=== PATIENT | female | born 1950 | race Caucasian/White ===

== ENCOUNTER 2017-06-26 20:22 | Inpatient (IN) | payer OTHER, MEDICARE ==
[~2017-06-26] VITALS: Ht 160 cm; Wt 111.1 kg
[~2017-06-26 20:22] MED LIST: ACETAMINOPHEN PO; AMITIZA8 MCG PO; ARMOUR THYROID60 MG PO; BISOPROLOL/HCTZ1 TAB PO; BUTALBITAL PO; CAFFEINE PO; CRESTOR 10MG10 MG PO; DIAZEPAM10 MG PO; FIORICET 325 MG1 TAB PO; K-DUR 20MEQ TA20 MEQ PO; LEVAQUIN750 M1 PO; MIRALAX17 GM PO; NEXIUM 40MG40 MG PO; NORCO 325 MG-101 TAB PO; PROVENTIL HFA6.7 GM INH
--- NOTE | 2017-06-26 20:43 | ED GENERAL ADULT ---
History of Present Illness General Chief Complaint: Dyspnea (COPD, CHF, Other) Stated Complaint: "PNEUMONIA" Source: patient, old records Exam Limitations: no limitations Vital Signs & Intake/Output Vital Signs & Intake/Output Vital Signs Date Time Temp Pulse Resp B/P B/P Pulse O2 O2 Flow FiO2 Mean Ox Delivery Rate 06/27 0220 98.6 98 20 154/86 93 Room Air 06/27 0211 Room Air 06/27 0043 99.2 06/26 2309 98.2 79 22 152/93 94 Room Air 06/26 2117 118 16 176/84 93 Room Air 06/26 2105 99.7 98 18 175/100 92 Room Air ED Intake and Output 06/27 0000 06/26 1200 Intake Total 240 Output Total Balance 240 Intake, Oral 240 Patient 245 lb Weight Weight Reported by Patient Measurement Method Allergies Coded Allergies: atorvastatin (RHABDOMYOLYSIS 06/26/17) codeine (GI DISTRESS 06/26/17) Reconcile Medications Albuterol Sulfate (Proventil Hfa) 90 MCG HFA.AER.AD 2 PUF INH Q4 PRN wheezing Aspirin/Acetaminophen/Caffeine (Excedrin Extra Strength Caplet) 250 MG-250 MG-65 MG TABLET 2 TAB PO QAM PAIN (Reported) Bisoprolol Fumarate/Hctz (Bisoprolol-Hctz 10-6.25 MG Tab) (Unknown Strength) TABLET (Unknown Dose) PO DAILY BP (Reported) Diazepam 10 MG TABLET 1 TAB PO 4XDAILY PRN ANXIETY (Reported) Esomeprazole Magnesium (Nexium) 20 MG CAPSULE.DR 2 CAP PO DAILY GI (Reported) Hydrocodone/Acetaminophen (Hydrocodon-Acetaminophn 10-325) 10 MG-325 MG TABLET 1 TAB PO Q8H PRN PAIN (Reported) Levofloxacin (Levaquin) 750 MG TABLET 1 TAB PO DAILY PNA Potassium Chloride (Unknown Strength) TAB.ER.PRT (Unknown Dose) PO DAILY SUPPLEMENT (Reported) Ranitidine HCl (Zantac) 150 MG TABLET 1 TAB PO QPM GI (Reported) Rosuvastatin Calcium (Crestor) (Unknown Strength) TABLET (Unknown Dose) PO DAILY CHOLESTEROL (Reported) Thyroid,Pork (Climax Thyroid) 60 MG TABLET 1 TAB PO DAILY THYROID (Reported) Triage Note: RECEIVED 66 YO FEMALE INSTRUCTED TO RETURN TO THE ED BY CARLOS EDMONDS FOR EKG CHANGES AND PNA Triage Nurses Notes Reviewed? yes Onset: Gradual Duration: day(s): Timing: recent history Injury Environment: home Severity: moderate HPI: 66yo female with hx of HTN presents to ED complaining of cough, congestion and dyspnea x weeks. Patient reports that symptoms have worsened over the past several days. Dyspnea is worse with ambulation with lying flat. Patient reports intermittent fevers and chills over the past 2 days. Patient reports bilateral chest pain with cough for the past 2 days. Patient has been taking Mucinex and NyQuil which have helped her symptoms slightly have her symptoms have been persistent. Patient was also prescribed azithromycin and finished 2 courses however symptoms have been persistent. Today patient was seen and evaluated at an urgent care and was sent here to the emergency department for evaluation of possible pneumonia. The patient denies presyncope, vomiting, diarrhea, constipation, hemoptysis, recent travel, leg swelling (Carlos Ellis) Past History Travel History Traveled to [place] past 21 day No Medical History Any Pertinent Medical History? 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 No (Carlos Ellis) Review of Systems Review of Systems Constitutional: Reports: see HPI. EENTM: Reports: see HPI. Respiratory: Reports: see HPI. Cardiovascular: Reports: see HPI. GI: Reports: no symptoms. Genitourinary: Reports: no symptoms. Musculoskeletal: Reports: no symptoms. Skin: Reports: no symptoms. Neurological/Psychological: Reports: no symptoms. Hematologic/Endocrine: Reports: no symptoms. Immunologic/Allergic: Reports: no symptoms. All Other Systems: Reviewed and Negative (Carlos Ellis) Physical Exam Physical Exam General Appearance: well developed/nourished, no apparent distress, alert, awake Head: atraumatic, normal appearance Eyes: Bilateral: normal appearance. Ears, Nose, Throat: normal pharynx, normal ENT inspection, hearing grossly normal Neck: normal inspection, supple, full range of motion Respiratory: diffuse expiratory wheezes bilaterally Cardiovascular: tachycardia, irregularly irregular Peripheral Pulses: 2+ radial (R), 2+ radial (L) Gastrointestinal: normal bowel sounds, soft, non-tender, no organomegaly Rectal: normal exam, normal rectal tone, heme negative stool Back: normal inspection, normal range of motion Extremities: normal inspection, normal range of motion Neurologic/Psych: awake, alert, oriented x 3 Skin: intact, normal color, warm/dry Core Measures ACS in differential dx? Yes CVA/TIA Diagnosis: No Sepsis Present: No Sepsis Focused Exam Completed? No (Mady EDMONDS,Carlos Soni) Progress Differential Diagnoses I considered the following diagnoses in my evaluation of the patient: [Pneumonia , new onset atrial fibrillation, pulmonary embolism, ACS, bronchitis] Plan of Care: Orders Procedure Date/time Status Heart Healthy Diet 06/27 B Active CBC WITHOUT DIFFERENTIAL 06/27 0600 Active BASIC ELECTROLYTES PLUS BUN&CR 06/27 0600 Active TROPONIN LEVEL 06/27 0400 Active EKG 06/27 0400 Active Vital Signs 06/27 0116 Active Teach/Educate 06/27 0116 Active Pain Treatment and Response 06/27 0116 Active Nutritional Intake, Monitor 06/27 0116 Active Isolation 06/27 0116 Active Intake & Output 06/27 0116 Active Patient Care Conference 06/27 0116 Active Activity/Ambulation 06/27 0116 Active MISTAKE 06/27 UNK Active TRC EVALUATION (GEN) 06/26 2324 Active Pathway - chart 06/26 2323 Active House Staff 06/26 2323 Active Patient Data 06/26 2323 Active Code Status 06/26 2323 Active Patient Data 06/26 2322 Active Patient Data 06/26 2320 Active Intake & Output 06/26 2231 Active ED Holding Orders 06/26 2226 Active Admit to inpatient 06/26 2226 Active Vital Signs 06/26 2226 Active Code Status 06/26 2226 Complete BLOOD CULTURE 06/26 2131 Active TROPONIN LEVEL 06/26 2124 Complete PARTIAL THROMBOPLASTIN TIME 06/26 2124 Complete PROTHROMBIN TIME 06/26 2124 Complete D-DIMER 06/26 2124 Complete VTE Mechanical Prophylaxis 06/26 UNK Active Telemetry/Health Services Rn 06/26 UNK Active Current Medications Sig/Christopher Start time Last Medication Dose Stop Time Status Admin Azithromycin 500 MG DAILY 06/27 1000 AC 06/26 (Zithromax) 2340 Dextrose/Water 250 ML (D5W) Ceftriaxone Sodium 1,000 MG DAILY 06/27 1000 AC 06/27 (Rocephin) 0003 Diltiazem HCl 125 MG Q24H 06/26 2315 AC 06/27 (Cardizem DRIP) 0026 Sodium Chloride 100 ML (Normal Saline 0.9%) Heparin Sodium 25,000 UNIT Q24H 06/26 2300 AC 06/27 (Porcine) 0026 (Heparin) Sodium Chloride 500 ML Laboratory Tests 06/26/172220: Troponin I < 0.01, PT 12.4, INR 1.18, APTT 29, D-Dimer High Sensitivty 206 Microbiology 06/26 2340 BLOOD: Blood Culture - RECD 06/26 2220 BLOOD: Blood Culture - RECD 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 Loyola. This patient was discharged by myself at 6 PM with antibiotics for her pneumonia. Following her discharge EKG was noted to be in new atrial fibrillation. I spoke with the patient over the phone and she reports no history of atrial fibrillation, she agrees to return to the emergency department for repeat EKG. Repeat EKG shows atrial fibrillation is persistent. This patient has new onset atrial fibrillation and will require hospital admission. Dr. Barakat agrees with the plan of care. Discussed this patient with Dr. Ramirez, he agrees with plan for Heparin and cardizem. Cardiology to consult patient Discussed this patient with Dr. Bay. He agrees with the plan. Admit to [facility]'s service. Diagnostic Imaging: Viewed by Me: Radiology Read. Discussed w/RAD: Radiology Read. CXR Impression: PATIENT: LEE CRAIG PRESENT AGE: 66 PATIENT ACCOUNT NO: [id number] : 50 LOCATION: [facility] ORDERING PHYSICIAN: Freedom EDMONDS SERVICE DATE: 06/26/17 EXAM TYPE: RAD - XRY-CHEST XRAY, TWO VIEWS EXAMINATION: XR CHEST CLINICAL INFORMATION: Cough. Fever. Shortness of breath. COMPARISON: Chest x-ray 10/19/2013 TECHNIQUE: 2 views of the chest were obtained. FINDINGS: Stable mild cardiomegaly. The lungs are adequately aerated. No gross pleural effusion. Subtle patchy opacity of the right lung base. This may be secondary to subsegmental atelectasis from mildly asymmetrical elevation of the right hemidiaphragm, however, with the provided clinical information, a developing infiltrate cannot be excluded. Diffuse degenerative changes of the spine. IMPRESSION: Subtle patchy opacity of the right lung base. This may be secondary to subsegmental atelectasis from mildly asymmetrical elevation of the right hemidiaphragm, however, with the provided clinical information, a developing infiltrate cannot be excluded. Clinical correlation recommended. Follow-up x-ray recommended status post treatment to ensure complete resolution. DICTATED BY: Neptali Pichardo MD DATE/TIME DICTATED:06/26/171602 DATA ENTRY ASSISTANT:SHARON DATE/TIME TRANSCRIBED:06/26/171602 CONFIDENTIAL, DO NOT COPY WITHOUT APPROPRIATE AUTHORIZATION. <Electronically signed in Other Vendor System> SIGNED BY: Neptali Pichardo MD 06/26/171608 Initial ED EKG: atrial fibrillation, rate 126, RBBB Prior EKG: changed (10/01/12 - NSR) (Carlos Ellis) Departure Departure Disposition: STILL A PATIENT Condition: Stable Clinical Impression Primary Impression: New onset a-fib Secondary Impressions: Pneumonia Referrals: Oswald Irizarry MD (PCP/Family) Departure Forms: Customer Survey General Discharge Information Admission Note Spoke With: Phu ZUNIGA,Kem Lyon. Documentation of Exam: Documentation of any treatments & extenuating circumstances including Concerns Regarding Discharge (functional status, medication knowledge or non-compliance, living conditions, etc.) that warrant an admission rather than observation: [New onset atrial fibrillation requiring cardiology consult, IV heparin, IV Cardizem, repeat EKGs, troponins, pneumonia requiring IV antibiotics, premature discharge would be medically unsafe] (Carlos Ellis) PA/CRICKET COACH Co-Sign Statement Statement: ED Attending supervision documentation- [X] I saw and evaluated the patient. I have also reviewed all the pertinent lab results and diagnostic results. I agree with the findings and the plan of care as documented in the PA's/CRICKET COACH's documentation. [X] I have reviewed the ED Record and agree with the PA's/CRICKET COACH's documentation. [] Additions or exceptions (if any) to the PAs/CRICKET COACH's note and plan are summarized below: [] (Yuval ZUNIGA,Hope) Critical Care Note Critical Care Note Critical Care Time: non-applicable (Mady EDMONDS,Carlos Soni)
[2017-06-26] MEDS ORDERED: ARMOUR THYROID60 M1 PO (22:31)
[2017-06-26] MEDS ORDERED: BISOPROLOL-HCT1 EAC2 PO (22:31)
[2017-06-26] MEDS ORDERED: CRESTOR10 M1 PO (22:31)
[2017-06-26] MEDS ORDERED: DIAZEPAM10 M1 PO (22:32)
[2017-06-26] MEDS ORDERED: POTASSIUM CHLO20 ME2 PO (22:32)
[2017-06-26] MEDS ORDERED: HYDROCODON-ACE1 EAC1 PO (22:32)
[2017-06-26] MEDS ORDERED: EXCEDRIN EXTRA1 EACH PO (22:33)
[2017-06-26] MEDS ORDERED: ZANTAC150 M1 PO (22:34)
[2017-06-26] MEDS ORDERED: NEXIUM20 M1 PO (22:34)
[2017-06-26 22:46] LABS: PT 12.4 SEC (9.4-12.5); PTT 29 SEC (25-37)
--- NOTE | 2017-06-26 23:25 | History & Physical ---
Brian ZUNIGA,Parth 06/26/17 3673: General Information and HPI MD Statement: I have seen and personally examined LEE CRAIG and documented this H&P. The patient is a 66 year old F who presented with a patient stated chief complaint of [new onset a fib]. Source of Information: patient, old records Exam Limitations: no limitations History of Present Illness: Patient is a 66-year-old female with a past medical history significant for hypothyroidism, HTN, HLD, OA, GERD who presents complaining of a five-day history of URI-like symptoms. On 06/22/17 patient notes the onset of symptoms with a sore throat, chest congestion, chills, nonproductive cough with the feeling of incomplete clearing of mucus. She endorses mild shortness of breath and has awoken gasping for air on a few occasions, she attributes this to her chest congestion. She reports chest soreness secondary to coughing, no persistent chest pain or discomfort. For the last 2 days she has had poor by mouth intake, mild nausea, and lightheadedness. She has had increasing fatigue and had a sick contact of her [id number] who had pneumonia recently and within this hospital's ICU. She has been self-medicating with NyQuil and Mucinex and reported that initially this improved her symptoms. She presented to the ED earlier today in the morning and her CXR showed likely pneumonia and was discharged with by mouth antibiotics however she was called back and told to return to the ED after further review of her EKG revealed A. fib. She experienced palpitations after receiving steroids in the ED, besides this she reports vague episodes of palpitation associated with heartburn. She denies any fever, loss of consciousness, weakness, numbness, tingling. Patient follows with Dr. Valencia's group for cardiology. Allergies/Medications Allergies: Coded Allergies: atorvastatin (RHABDOMYOLYSIS 06/26/17) codeine (GI DISTRESS 06/26/17) Home Med list Albuterol Sulfate (Proventil Hfa) 90 MCG HFA.AER.AD 2 PUF INH Q4 PRN wheezing Aspirin/Acetaminophen/Caffeine (Excedrin Extra Strength Caplet) 250 MG-250 MG-65 MG TABLET 2 TAB PO QAM PAIN (Reported) Bisoprolol Fumarate/Hctz (Bisoprolol-Hctz 10-6.25 MG Tab) (Unknown Strength) TABLET (Unknown Dose) PO DAILY BP (Reported) Diazepam 10 MG TABLET 1 TAB PO 4XDAILY PRN ANXIETY (Reported) Esomeprazole Magnesium (Nexium) 20 MG CAPSULE.DR 2 CAP PO DAILY GI (Reported) Hydrocodone/Acetaminophen (Hydrocodon-Acetaminophn 10-325) 10 MG-325 MG TABLET 1 TAB PO Q8H PRN PAIN (Reported) Levofloxacin (Levaquin) 750 MG TABLET 1 TAB PO DAILY PNA Potassium Chloride (Unknown Strength) TAB.ER.PRT (Unknown Dose) PO DAILY SUPPLEMENT (Reported) Ranitidine HCl (Zantac) 150 MG TABLET 1 TAB PO QPM GI (Reported) Rosuvastatin Calcium (Crestor) (Unknown Strength) TABLET (Unknown Dose) PO DAILY CHOLESTEROL (Reported) Thyroid,Pork (Salmon Thyroid) 60 MG TABLET 1 TAB PO DAILY THYROID (Reported) Past History Travel History Traveled to [place] past 21 day No Medical History Neurological: NONE EENT: NONE Cardiovascular: hypertension, hyperlipidemia Respiratory: NONE Gastrointestinal: GERD Hepatic: NONE Renal: NONE Musculoskeletal: NONE Psychiatric: NONE Endocrine: hypothyroidism Blood Disorders: NONE Cancer(s): NONE 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 Home Who Do You Live With? spouse Services at Home: None Primary Language: Bengali Smoking Status: Former Smoker (20 pack years) ETOH Use: denies use Illicit Drug Use: denies illicit drug use Living Will? no Functional Ability ADLs Independent: dressing, eating, toileting, bathing. Ambulation: independent IADLs Independent: shopping, housework, finances, food prep, telephone, transportation , medication admin. Review of Systems Review of Systems Constitutional: Reports: chills. Denies: diaphoresis, fever, weakness. EENTM: Denies: blurred vision, double vision, visual changes, eye pain. Cardiovascular: Reports: palpitations. Denies: chest pain, edema, orthopena, syncope. Respiratory: Reports: see HPI, cough, short of breath, wheezing. Denies: orthopnea, sputum production. GI: Reports: nausea. Denies: abdominal pain, bloating, constipation, diarrhea, melena, bloody stool, vomiting. Genitourinary: Denies: discharge, dysuria, frequency, hematuria. Musculoskeletal: Reports: neck pain (chornic). Skin: Reports: no symptoms. Neurological/Psychological: Reports: tingling (chronic). Denies: headache, numbness, weakness. Exam & Diagnostic Data Last 24 Hrs of Vital Signs/I&O Vital Signs Date Time Temp Pulse Resp B/P B/P Pulse O2 O2 Flow FiO2 Mean Ox Delivery Rate 06/27 0043 99.2 06/26 2309 98.2 79 22 152/93 94 Room Air 06/26 2117 118 16 176/84 93 Room Air 06/26 2105 99.7 98 18 175/100 92 Room Air Intake & Output 06/27 0800 06/27 0000 06/26 1600 Intake Total 240 Output Total Balance 240 Intake, Oral 240 Patient 245 lb Weight Weight Reported by Patient Measurement Method Physical Exam General Appearance Alert, Oriented X3, Cooperative, No Acute Distress Skin No Rashes Skin Temp/Moisture Exam: Warm/Dry Sepsis Skin Exam (color): Normal for Ethnicity HEENT Atraumatic, PERRLA, EOMI, Mucous Membr. moist/pink Neck Supple, No JVD, No thryomegaly Cardiovascular Normal S1, Normal S2, irregularly irregular rhythm Lungs Clear to Auscultation, diminished breath sounds Abdomen Normal Bowel Sounds, Soft, No Tenderness Neurological Normal Speech, Strength at 5/5 X4 Ext, Normal Tone, Sensation Intact, Cranial Nerves 3-12 NL Extremities No Clubbing, No Cyanosis, No Edema Vascular Pulses Symmetrical Last 24 Hrs of Labs/Diaz: Laboratory Tests 06/26/172220: Troponin I < 0.01, PT 12.4, INR 1.18, APTT 29, D-Dimer High Sensitivty 206 Microbiology 06/26 2340 BLOOD: Blood Culture - RECD 06/26 2220 BLOOD: Blood Culture - RECD Diagnostic Data EKG Results A fib, HR 110, QTc 461 CXR Results Subtle patchy opacity of the right lung base. This may be secondary to subsegmental atelectasis from mildly asymmetrical elevation of the right hemidiaphragm, however, with the provided clinical information, a developing infiltrate cannot be excluded. Assessment/Plan Assessment: Patient is a 66-year-old female with a past medical history significant for hypothyroidism, HTN, HLD, OA, GERD who presents complaining of a five-day history of URI-like symptoms and was found to be in A. fib. CXR is consistent with possible pneumonia. She shows no signs of fluid overload on exam, no lower extremity edema, no crackles on auscultation, no JVD. She does report dyspnea with exertion and lying flat she attributes this mostly to being unable to clear mucus while coughing. Vital signs on admission: T 98.4, HR 69(increased to 118), RR 18, BP 109/74, pulse ox 94% on RA Labs on admission: WBC 6.8, H/H 15.3/46.1, platelets 234, sodium 141, potassium 4.4, chloride 101, CO2 27, BUN 14, creatinine 0.5, glucose 145, calcium 10.3, troponin <0.01 Problem list #New-onset atrial fibrillation #Possible right lower lobe pneumonia #History of hypothyroidism, HTN, HLD, OA Plan -Admit to telemetry -Continuous telemetry monitoring -IV Cardizem drip, titrated to a goal heart rate of <110 -IV heparin, patient was guaiac negative in the ED -Serial troponin EKG to rule out ACS -orthostatic vitals - echocardiogram -Cardiology consult, follow-up recommendations -Treatment of likely pneumonia with IV ceftriaxone and azithromycin -follow up blood cultures -Continue home medications -Heart healthy diet -DVT prophylaxis with IV heparin, ALPS -Status: Full code As Ranked By This Provider Problem List: 1. New onset a-fib 2. Pneumonia Core Measures/Misc (01/25) Acute Coronary Syndrome ACS Diagnosis: No Congestive Heart Failure Congestive Heart Failure Diagnosis No Cerebrovascular Accident CVA/TIA Diagnosis: No VTE (View Protocol) VTE Risk Factors Age>40 No Mechanical VTE Prophylaxis d/t N/A MechProphylax Ordered No VTE Pharm Prophylaxis d/t NA PharmProphylax ordered Sepsis (View protocol) Sepsis Present: No Eugene Zaragoza MD 06/27/17 0013: Resident Review Statement Resident Statement: examined this patient, discussed with technical support intern, agreed with technical support intern Other Findings: Patient is a 66-year-old female with multiple medical problems presented with chief complaints of the cough, fever, palpitation since couple of days. According to the patient on last Surinder she started having sore throat along with shortness of breath so she tried NyQuil and Mucinex with partial improvement. In the morning as she was not feeling well she went to urgent care at [facility] and there she was given a steroid shot, nebulization and x-ray was done which showed evidence of pneumonia.She was advised to come to [facility] for further evaluation and management. Shortness of breath, worsen with lying,so she was not able to sleep since cople of days.She feels congested and wheezy.She was also having associated funny feeling of the heart. She denies for any fever, nausea, vomiting, chest pain, abdominal pain, bowel and bladder incontinence. She came to the [facility] emergency department in the morning as her blood work up was normal she was sent to home on oral levofloxacin. But later it was find out that her EKG was showing atrial fibrillation so she was called back to come to [facility]. Past medical history -hypertension, hyperlipidemia, hypothyroidism, obesity, migraine, GERD, arthritis Surgical history -right shoulder arthroplasty, cholecystectomy, hernia repair Personal history-she lives with , do all her daily activity. She quit cigarettes around 25 years ago. She started smoking around age of 20 and was using around 1 pack per day. Family history-colon cancer in the father, she is undergoing screening colonoscopy every 5 years. Both parents for having history of coronary artery disease and needed pacemaker ED course -at the time of admission temperature was 99.7, pulse 98, respiratory rate 18, blood pressure 175/100, SPO2 92% on room air. Blood workup showed hemoglobin 15.8, WBC 6.8, hematocrit 46.1, MCV 88.4, platelet count 234, granulocyte 86.4, eosinophils 0.8, sodium 141, potassium 4.4, chloride 101, carbon dioxide 27, anion gap 13, BUN 14, creatinine 0.5, GFR more than 60, BUN/ creatinine ratio 28, glucose 145, calcium 10.3, total bilirubin 0.5, AST 25, ALT 31, alkaline phosphatase 86, troponin less than 0.01, total protein 7.3, albumin 4.5, globulin 2.8, PT/INR -12.4/1.18. CXR (06/26/2016) -Subtle patchy opacity of the right lung base. Assessment and plan - Patient is a 66-year-old female with multiple medical problems presented with chief complaints of gradually progressive shortness of breath. Her chest x-ray showed evidence of right lower lobe patchy opacity.Incidentally EKG findings show evidence of right bundle branch block along with atrial fibrillation.It seems that it is new onset atrial fibrillation so we will start patient on anticoagulation and rate control medication.We will also give her IV antibiotic, for possible pneumonia. Plan - New onset atrial fibrillation - * We will admit the patient to telemetry floor * We will start patient on IV heparin drip * will start patient on IV Cardizem drip * Will follow cardiology recommendation * We will follow echocardiogram Right lower lobe atelectasis possibly post viral pneumonia/CAP * Will start patient on IV ceftriaxone and azithromycin to treat community- acquired pneumonia. * Will check for flu * We will keep her HOB elevated * Give patient oxygen via nasal cannula to keep SPO2 more than 90%. Chronic medical condition -hypertension, hyperlipidemia, hypothyroid, asthma * We will continue all home medication as before * Advised to confirm the doses from pharmacy Code status - FC DVt prophylaxis - Heparin Diet - Heart healthy diet Phu ZUNIGA,[facility] 06/27/17 2013: Attending MD Review Statement Attending Statement Attending MD Statement: examined this patient, discuss w/resident/PA/VEHICLE BODY MAKER, agreed w/resident/PA/VEHICLE BODY MAKER, discussed with family, reviewed EMR data (avail), discussed with nursing, discussed with case mgmt, reviewed images, amended to note Attending Assessment/Plan: Seen and examined independently Discussed with IMRESSION Bronchitis with pna New onset afib now in sinus HTN, Hyperlipedemia and hypothryoid HIgh Kris vasc of 3 needs anticoag Mild hyperthyroid as she is on armour thyroid REC COnt abx NEbs only with ipratropium atc Use albuterol only if she is sig wheezing Pts dose of armour thyroid has been reduced now -Now on one grain (eq to 30 mg and her home dose was 60 mg) Apixaban Out pt monitoring with a loop recorder Start symbicort bid Start spiriva one puff daily when she is more stable Sputum culture
[2017-06-27 02:20] VITALS: BP 154/86
[2017-06-27 06:00] VITALS: BP 138/88
--- NOTE | 2017-06-27 08:26 | PN- Housestaff ---
See Addendum Subjective Follow-up For: New-onset atrial fibrillation Possible right lower lobe pneumonia Tele-Events Since Last Visit: Aflutter, PVCs, mutifocal triplets HR 74-123 Subjective: Patient has no complaints. No acute event overnight. She denies palpitations, SOB, CP, nausea or vomiting. Review of Systems Constitutional: Reports: see HPI. Objective Last 24 Hrs of Vital Signs/I&O Vital Signs Date Time Temp Pulse Resp B/P B/P Pulse O2 O2 Flow FiO2 Mean Ox Delivery Rate 06/27 1350 97.7 70 20 130/70 91 Room Air 06/27 1021 Room Air 06/27 0836 134/74 06/27 0600 97.8 75 20 138/88 91 06/27 0220 98.6 98 20 154/86 93 Room Air 06/27 0211 Room Air 06/27 0043 99.2 06/26 2309 98.2 79 22 152/93 94 Room Air 06/26 2117 118 16 176/84 93 Room Air 06/26 2105 99.7 98 18 175/100 92 Room Air Intake & Output 06/27 1600 06/27 0800 06/27 0000 Intake Total 600 490 240 Output Total 750 Balance -150 490 240 Intake, IV 200 170 Intake, Oral 400 320 240 Number 1 Bowel Movements Output, Urine 750 Patient 245 lb 245 lb Weight Weight Reported by Patient Reported by Patient Measurement Method Physical Exam General Appearance: Alert, Oriented X3, Cooperative, No Acute Distress HEENT: Mucous Membr. moist/pink Cardiovascular: Regular Rate, Normal S1, Normal S2 Lungs: BL diffuse wheezing Abdomen: Normal Bowel Sounds, Soft, No Tenderness Extremities: No Edema Current Medications: Current Medications Sig/Christopher Start time Last Medication Dose Route Stop Time Status Admin Albuterol Sulfate 2 PUF Q4 PRN 06/27 0445 AC INH Azithromycin 500 MG DAILY 06/27 1000 AC 06/26 Dextrose/Water 250 ML IV 2340 Ceftriaxone Sodium 1,000 MG DAILY 06/27 1000 AC 06/27 IV 0003 Ceftriaxone Sodium 0 .STK-MED ONE 06/26 2350 DC .ROUTE Diltiazem HCl 125 MG Q24H 06/26 2315 DC 06/27 Sodium Chloride 100 ML IV 0026 Diltiazem HCl 0 .STK-MED ONE 06/26 2312 DC IV Diltiazem HCl 125 MG Q16H 06/26 2300 DC Sodium Chloride 100 ML IV Heparin Sodium 0 .STK-MED ONE 06/27 0023 DC (Porcine) .ROUTE Heparin Sodium 4,000 UNIT ONCE ONE 06/26 2300 DC 06/27 (Porcine) IV 06/26 2301 0026 Heparin Sodium 25,000 UNIT Q24H 06/26 2300 AC 06/27 (Porcine) IV 0026 Sodium Chloride 500 ML Hydrochlorothiazide 12.5 MG DAILY 06/27 1000 AC 06/27 PO 0836 Metoprolol Tartrate 100 MG BID 06/27 1000 AC 06/27 PO 0836 Omeprazole 20 MG DAILY AC 06/27 0948 AC PO Thyroid 1 GR DAILY AC 06/27 0700 AC PO Last 24 Hrs of Lab/Diaz Results Last 24 Hrs of Labs/Mics: Laboratory Tests 06/27/17 0955: Sodium Pending, Potassium Pending, Chloride Pending, Carbon Dioxide Pending, Anion Gap Pending, BUN Pending, Creatinine Pending, BUN/Creatinine Ratio Pending , APTT Pending, CBC w Diff Pending, WBC Pending, RBC Pending, Hgb Pending, Hct Pending, MCV Pending, MCH Pending, MCHC Pending, RDW Pending, Plt Count Pending, MPV Pending 06/27/17 0420: Troponin I 0.01 06/26/17 2221: Troponin I < 0.01, PT 12.4, INR 1.18, APTT 29, D-Dimer High Sensitivty 206 Microbiology 06/26 2340 BLOOD: Blood Culture - RECD 06/26 2220 BLOOD: Blood Culture - RECD Assessment/Plan Assessment: Ms. Huffman is a 66-year-old female with a past medical history significant for hypothyroidism, HTN, HLD, OA, GERD who presents complaining of a five-day history of URI-like symptoms and was found to be in A. fib. CXR is consistent with possible pneumonia. She shows no signs of fluid overload on exam, no lower extremity edema, no crackles on auscultation, no JVD. Problem list 1. New-onset atrial fibrillation 2. Possible right lower lobe pneumonia Plan: * Patient converted to NSR * Repeat ECG * Discontinue IV Cardizem * Discontinue IV heparin * Start Apixaban 5mg BID, Metoprolol 100 mg BID * Await ECHO * Do not resume ASA upon discharge * TSH, Free T4 * Follow up blood cultures * Cardio recommendations appreciated Problem List: 1. New onset a-fib 2. Pneumonia Pain Ratin Pain Location: NA Pain Goal: Remain pain free Pain Plan: NA Tomorrow's Labs & Rationales: CBC to monitor white ct BEP for renal function
[2017-06-27 10:43] LABS: ABSOLUTE BASOPHIL COUNT 0 /CUMM (0.0-0.2); ABSOLUTE EOSINOPHIL COUNT 0 /CUMM (0.0-0.7); ABSOLUTE GRANULOCYTE CT 3.8 /CUMM (1.4-6.5); ABSOLUTE LYMPH COUNT 0.6 /CUMM (1.2-3.4); ABSOLUTE MONOCYTE COUNT 0.2 /CUMM (0.10-0.60); BASOPHIL % 0.1 % (0.0-2.0); EOSINOPHIL % 0 % (0-5); HEMATOCRIT 45.2 % (37-47); MEAN CORPUSCULAR HGB 29.5 PG (27.0-31.0); MEAN CORPUSCULAR VOLUME 89.2 FL (81.0-99.0); MEAN PLATELET VOLUME 11.5 FL (7.4-10.4); PLATELET COUNT 259 /CUMM (130-400); RBC DISTRIBUTION WIDTH 14.3 % (11.5-14.5); RED BLOOD CELL CT 5.07 /CUMM (4.20-5.40); WHITE BLOOD CELL COUNT 4.6 /CUMM (4.8-10.8)
[2017-06-27 10:51] LABS: PTT 58 SEC (25-37)
--- NOTE | 2017-06-27 12:46 | Cons- Cardiology ---
General Information and HPI Consulting Request Date of Consult: 06/27/17 Requested By: Oswald Irizarry MD Reason for Consult: Atrial Fibrillation Source of Information: patient, old records History of Present Illness: This is a pleasant 66-year-old female with a past medical history of hypertension, hyperlipidemia, and hypothyroidism who presents to [facility] with a few days of cough which was nonproductive of sputum but she did notice some significant chest congestion. She did not check her temperature at home but was having some sweating primarily at night. She has had some low-level palpitations in the past but has not noticed a recent dramatic increase. Denies any chest discomfort but she did have some mild to moderate dyspnea. Denies increased lower extremity edema, orthopnea, or paroxysmal nocturnal dyspnea. She does report symptoms of GERD in the past. She had been taking NyQuil and Mucinex at home. She denies any syncopal episodes. She did have a nuclear stress test a few years ago that was normal. Allergies/Medications Allergies: Coded Allergies: atorvastatin (RHABDOMYOLYSIS 06/26/17) codeine (GI DISTRESS 06/26/17) Home Med List: Albuterol Sulfate (Proventil Hfa) 90 MCG HFA.AER.AD 2 PUF INH Q4 PRN wheezing Aspirin/Acetaminophen/Caffeine (Excedrin Extra Strength Caplet) 250 MG-250 MG-65 MG TABLET 2 TAB PO QAM PAIN (Reported) Bisoprolol Fumarate/Hctz (Bisoprolol-Hctz 10-6.25 MG Tab) (Unknown Strength) TABLET (Unknown Dose) PO DAILY BP (Reported) Diazepam 10 MG TABLET 1 TAB PO 4XDAILY PRN ANXIETY (Reported) Esomeprazole Magnesium (Nexium) 20 MG CAPSULE.DR 2 CAP PO DAILY GI (Reported) Hydrocodone/Acetaminophen (Hydrocodon-Acetaminophn 10-325) 10 MG-325 MG TABLET 1 TAB PO Q8H PRN PAIN (Reported) Levofloxacin (Levaquin) 750 MG TABLET 1 TAB PO DAILY PNA Potassium Chloride (Unknown Strength) TAB.ER.PRT (Unknown Dose) PO DAILY SUPPLEMENT (Reported) Ranitidine HCl (Zantac) 150 MG TABLET 1 TAB PO QPM GI (Reported) Rosuvastatin Calcium (Crestor) (Unknown Strength) TABLET (Unknown Dose) PO DAILY CHOLESTEROL (Reported) Thyroid,Pork ([place] Thyroid) 60 MG TABLET 1 TAB PO DAILY THYROID (Reported) Current Medications: Current Medications Sig/Christopher Start time Last Medication Dose Route Stop Time Status Admin Albuterol Sulfate 2 PUF Q4 PRN 06/27 0445 AC INH Azithromycin 500 MG DAILY 06/27 1000 AC 06/26 Dextrose/Water 250 ML IV 2340 Ceftriaxone Sodium 1,000 MG DAILY 06/27 1000 AC 06/27 IV 0003 Ceftriaxone Sodium 0 .STK-MED ONE 06/26 2350 DC .ROUTE Diltiazem HCl 125 MG Q24H 06/26 2315 DC 06/27 Sodium Chloride 100 ML IV 0026 Diltiazem HCl 0 .STK-MED ONE 06/26 2312 DC IV Diltiazem HCl 125 MG Q16H 06/26 2300 DC Sodium Chloride 100 ML IV Heparin Sodium 0 .STK-MED ONE 06/27 0023 DC (Porcine) .ROUTE Heparin Sodium 4,000 UNIT ONCE ONE 06/26 2300 DC 06/27 (Porcine) IV 06/26 2301 0026 Heparin Sodium 25,000 UNIT Q24H 06/26 2300 AC 06/27 (Porcine) IV 0026 Sodium Chloride 500 ML Hydrochlorothiazide 12.5 MG DAILY 06/27 1000 AC 06/27 PO 0836 Metoprolol Tartrate 100 MG BID 06/27 1000 AC 06/27 PO 0836 Omeprazole 20 MG DAILY AC 06/27 0948 AC 06/27 PO 1223 Thyroid 1 GR DAILY AC 06/27 0700 AC PO Review of Systems Review of Systems: Review of systems as per HPI. The remainder of a 10 point review of systems was reviewed and was otherwise negative. 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 Home Who Do You Live With? spouse Services at Home: None Primary Language: Tanzanian Smoking Status: Former Smoker (20 pack years) ETOH Use: denies use Illicit Drug Use: denies illicit drug use Living Will? no Functional Ability ADLs Independent: dressing, eating, toileting, bathing. Ambulation: independent IADLs Independent: shopping, housework, finances, food prep, telephone, transportation , medication admin. Exam & Diagnostic Data Vital Signs and I&O Vital Signs Date Time Temp Pulse Resp B/P B/P Pulse O2 O2 Flow FiO2 Mean Ox Delivery Rate 06/27 1021 Room Air 06/27 0836 134/74 06/27 0600 97.8 75 20 138/88 91 06/27 0220 98.6 98 20 154/86 93 Room Air 06/27 0211 Room Air 06/27 0043 99.2 06/26 2309 98.2 79 22 152/93 94 Room Air 06/26 2117 118 16 176/84 93 Room Air 06/26 2105 99.7 98 18 175/100 92 Room Air Intake & Output 06/27 1600 06/27 0800 06/27 0000 06/26 1600 06/26 0800 06/26 0000 Intake Total 490 240 Output Total Balance 490 240 Intake, IV 170 Intake, Oral 320 240 Patient 245 lb 245 lb Weight Weight Reported by Patient Reported by Patient Measurement Method Physical Exam: General: no apparent distress. Alert. Overweight. Eyes: No obvious scleral icterus. HEENT: No jugular venous distention or abnormal jugular venous pulsations. Cardiovascular: Normal intensity S1/S2. PMI not grossly displaced. Respiratory: No rales or rhonchi Abdomen: Soft, nontender with no guarding or rebound tenderness. Musculoskeletal: No clubbing or cyanosis noted Skin: No obvious rashes or ulcerations. Neurologic: No gross focal deficits noted. Lymph: No gross lymphadenopathy. Labs/Diaz Results: Laboratory Tests 06/27 06/27 06/26 0955 0420 2221 Chemistry Sodium (137 - 145 mmol/L) 142 Potassium (3.5 - 5.1 mmol/L) 3.8 Chloride (98 - 107 mmol/L) 102 Carbon Dioxide (22 - 30 mmol/L) 25 Anion Gap (5 - 16) 14 BUN (7 - 17 mg/dL) 18 H Creatinine (0.5 - 1.0 mg/dL) 0.4 L Estimated GFR (>60 ml/min) > 60 BUN/Creatinine Ratio (7 - 25 %) 45.0 H Troponin I (< 0.11 ng/ml) 0.01 < 0.01 Coagulation PT (9.4 - 12.5 SEC) 12.4 INR (0.90 - 1.19) 1.18 APTT (25 - 37 SEC) 58 H 29 D-Dimer High Sensitivty (0 - 243 ng/ml) 206 Hematology CBC w Diff NO MAN DIFF REQ WBC (4.8 - 10.8 /CUMM) 4.6 L RBC (4.20 - 5.40 /CUMM) 5.07 Hgb (12.0 - 16.0 G/DL) 14.9 Hct (37 - 47 %) 45.2 MCV (81.0 - 99.0 FL) 89.2 MCH (27.0 - 31.0 PG) 29.5 MCHC (33.0 - 37.0 G/DL) 33.0 RDW (11.5 - 14.5 %) 14.3 Plt Count (130 - 400 /CUMM) 259 MPV (7.4 - 10.4 FL) 11.5 H Gran % (42.2 - 75.2 %) 83.0 H Lymphocytes % (20.5 - 51.1 %) 12.7 L Monocytes % (1.7 - 9.3 %) 4.2 Eosinophils % (0 - 5 %) 0 Basophils % (0.0 - 2.0 %) 0.1 Absolute Granulocytes (1.4 - 6.5 /CUMM) 3.8 Absolute Lymphocytes (1.2 - 3.4 /CUMM) 0.6 L Absolute Monocytes (0.10 - 0.60 /CUMM) 0.2 Absolute Eosinophils (0.0 - 0.7 /CUMM) 0 Absolute Basophils (0.0 - 0.2 /CUMM) 0 Diagnostic Data EKG Results Tracing was personally reviewed and shows atrial fibrillation with incomplete right bundle-branch block CXR Results IMPRESSION: Subtle patchy opacity of the right lung base. This may be secondary to subsegmental atelectasis from mildly asymmetrical elevation of the right hemidiaphragm, however, with the provided clinical information, a developing infiltrate cannot be excluded. Clinical correlation recommended. Follow-up x-ray recommended status post treatment to ensure complete resolution. Other Results Telemetry tracings were personally reviewed and show atrial fibrillation with spontaneous conversion to sinus rhythm this morning Assessment/Plan Assessment/Plan 1. Respiratory tract infection 2. New-onset atrial fibrillation with spontaneous conversion back to sinus rhythm 3. History of hypertension 4. History of hyperlipidemia 5. History of hypothyroidism The patient presents with symptoms of respiratory tract infection but does not appear to be septic. She was noted to be in new onset atrial fibrillation and was initially started on Cardizem but spontaneously converted to sinus rhythm this morning. Her chads Vasc score is 3 based on her age, sex, and hypertension history and she is therefore a candidate for oral anticoagulation until we can exclude the possibility that this was lone atrial fibrillation with outpatient monitoring including possible implantable loop recorder in the future. We had an extensive discussion about the risks versus benefits of anticoagulation and various options; at this time she chooses Eliquis 5 mg by mouth twice a day which her also takes. Thyroid function tests should be checked and a transthoracic echocardiogram is pending. Discontinue heparin drip and start on the Eliquis; she does not need daily aspirin while on Eliquis. Her outpatient cardiac medications can be continued. Simone Tiwari MD [facility] Consult Acknowledgment - Thank you for your consult request.
[2017-06-27 13:50] VITALS: BP 130/70
--- NOTE | 2017-06-27 20:13 | Admission Certification ---
Admission Certification Certification Statement - As attending physician, I certify that at the time of - admission, based on clinical presentation, severity of - symptoms, need for further diagnostic testing and - therapeutic interventions, and risk of adverse outcomes - without in-hospital treatment, in my clinical assessment, - this patient requires an acute hospital stay for a minimum - of two nights or longer. I have also considered psychsocial - factors such as support system, advanced age, financial - issues, cognitive issues, and failed out-patient treatments, - past re-admission history, safety of patient, and lack of - compliance as applicable. Specific rationale supporting this admission is: Rapid afib with pna and bronchitis
[2017-06-27 23:00] VITALS: BP 158/82
[2017-06-28 07:00] VITALS: BP 132/70
[2017-06-28 07:42] LABS: ABSOLUTE BASOPHIL COUNT 0 /CUMM (0.0-0.2); ABSOLUTE EOSINOPHIL COUNT 0 /CUMM (0.0-0.7); ABSOLUTE GRANULOCYTE CT 8.2 /CUMM (1.4-6.5); ABSOLUTE LYMPH COUNT 0.9 /CUMM (1.2-3.4); BASOPHIL % 0.1 % (0.0-2.0); EOSINOPHIL % 0.3 % (0-5); GRANULOCYTE % 81.8 % (42.2-75.2); HEMATOCRIT 40.9 % (37-47); MEAN CORPUSCULAR HGB 29.3 PG (27.0-31.0); MEAN CORPUSCULAR HGB CONC 32.9 G/DL (33.0-37.0); MEAN CORPUSCULAR VOLUME 89.1 FL (81.0-99.0); MEAN PLATELET VOLUME 11.6 FL (7.4-10.4); PLATELET COUNT 224 /CUMM (130-400); RBC DISTRIBUTION WIDTH 14.6 % (11.5-14.5); RED BLOOD CELL CT 4.59 /CUMM (4.20-5.40)
[2017-06-28 08:06] LABS: WHITE BLOOD CELL COUNT 10.1 /CUMM (4.8-10.8)
--- NOTE | 2017-06-28 08:53 | PN- Housestaff ---
Subjective Follow-up For: New-onset atrial fibrillation Community-acquired pneumonia Tele-Events Since Last Visit: Sinus bradycardia with first-degree AV block Heart rate 48-71. Subjective: Patient denies any chest pain, palpitations, lightheadedness dizziness or syncopal episodes. States she was up to 11:30 last night because of shortness of breath and had to receive a neb treatment after which she was able to go to sleep. Reports cough with congestion but states she is not able to bring up much phlegm. Review of Systems Constitutional: Reports: no symptoms. EENTM: Reports: no symptoms. Cardiovascular: Reports: no symptoms. Respiratory: Reports: cough, short of breath. Gastrointestinal: Reports: no symptoms. Genitourinary: Reports: no symptoms. Musculoskeletal: Reports: no symptoms. Skin: Reports: no symptoms. Neurological/Psychological: Reports: no symptoms. Hematologic/Endocrine: Reports: no symptoms. Immunologic/Allergic: Reports: no symptoms. Objective Last 24 Hrs of Vital Signs/I&O Vital Signs Date Time Temp Pulse Resp B/P B/P Pulse O2 O2 Flow FiO2 Mean Ox Delivery Rate 06/28 1350 98.6 77 20 140/76 92 Room Air 06/28 0928 92 132/70 06/28 0800 Room Air 06/28 0700 97.9 96 20 132/70 92 06/28 0000 Room Air 06/27 2300 99.3 71 20 158/82 95 06/27 2120 78 130/72 Intake & Output 06/28 1600 06/28 0800 06/28 0000 Intake Total 1060 320 300 Output Total Balance 1060 320 300 Intake, IV 260 20 Intake, Oral 800 320 280 Physical Exam General Appearance: Alert, Oriented X3, Cooperative Skin: No Rashes, No Breakdown Cardiovascular: Regular Rate, Normal S1, Normal S2 Lungs: decreased breath sounds with expiratory wheezing Abdomen: Normal Bowel Sounds, Soft, No Tenderness Extremities: No Clubbing, No Cyanosis, No Edema Current Medications: Current Medications Sig/Christopher Start time Last Medication Dose Route Stop Time Status Admin Albuterol Sulfate 3 ML TID 06/28 2200 AC INH Albuterol Sulfate 2 PUF Q4 PRN 06/27 0445 AC INH Apixaban 5 MG BID 06/27 1302 AC 06/28 PO 0928 Atropine Sulfate 1 MG .STK-MED ONE 06/28 316 DC IM 06/28 0318 Azithromycin 500 MG DAILY 06/27 1000 AC 06/28 Dextrose/Water 250 ML IV 0930 Benzonatate 100 MG TID PRN 06/28 0119 AC 06/28 PO 1543 Budesonide/ 2 PUF BID 06/28 1424 AC 06/28 Formoterol Fumarate INH 1542 Budesonide/ 2 PUF BID 06/27 2200 DC 06/28 Formoterol Fumarate INH 0929 Ceftriaxone Sodium 1,000 MG DAILY 06/27 1000 AC 06/28 IV 0928 Guaifenesin 10 ML Q6P PRN 06/28 1000 AC PO Guaifenesin 600 MG Q12 06/27 1429 AC 06/28 PO 0928 Hydrochlorothiazide 12.5 MG DAILY 06/27 1000 AC 06/28 PO 0928 Hydrocodone Bitart/ 1 TAB ONCE ONE 06/28 1700 DC 06/28 Acetaminophen PO 06/28 1701 1725 Hydrocodone Bitart/ 1 TAB ONCE ONE 06/27 2100 DC 06/27 Acetaminophen PO 06/27 2101 2120 Ipratropium Crowley 2.5 ML TID 06/28 2200 AC INH Ipratropium Crowley 2.5 ML Q6 06/27 2054 DC INH Metoprolol Tartrate 75 MG BID 06/28 1000 DC PO Metoprolol Tartrate 50 MG BID 06/28 1000 AC 06/28 PO 0928 Metoprolol Tartrate 100 MG BID 06/27 1000 DC 06/27 PO 2120 Omeprazole 20 MG DAILY AC 06/27 0948 AC 06/28 PO 0614 Thyroid 45 MG DAILY AC 06/28 0700 AC PO Thyroid 1 GR DAILY AC 06/27 0700 DC PO Tramadol HCl 25 MG ONCE ONE 06/28 1700 CAN PO 06/28 1701 Last 24 Hrs of Lab/Diaz Results Last 24 Hrs of Labs/Mics: Laboratory Tests 06/28/17 0620: Anion Gap 7, Estimated GFR > 60, BUN/Creatinine Ratio 48.0 H, CBC w Diff NO MAN DIFF REQ, RBC 4.59, MCV 89.1, MCH 29.3, MCHC 32.9 L, RDW 14.6 H, MPV 11.6 H, Gran % 81.8 H, Lymphocytes % 8.4 L, Monocytes % 9.4 H, Eosinophils % 0.3, Basophils % 0.1, Absolute Granulocytes 8.2 H, Absolute Lymphocytes 0.9 L, Absolute Monocytes 1.0 H, Absolute Eosinophils 0, Absolute Basophils 0 Microbiology 06/28 1724 UPPER RESP: Surveillance Culture - COLB 06/28 1545 NASOPHARYN: Influenza Virus A & B Rapid Smear - COMP 06/27 2110 LOWER RESP: Respiratory Culture - COLB 06/27 2110 LOWER RESP: Gram Stain - COLB Assessment/Plan Assessment: Ms. Huffman is a 66-year-old female with a past medical history significant for hypothyroidism, HTN, HLD, OA, GERD who presents complaining of a five-day history of URI-like symptoms and was found to be in A. fib. CXR is consistent with possible pneumonia. She shows no signs of fluid overload on exam, no lower extremity edema, no crackles on auscultation, no JVD. Problem list 1. New-onset atrial fibrillation 2. Possible right lower lobe pneumonia Plan: * Patient continues to be in NSR * Was started on metoprolol 100 mg twice a day by cardiology, patient was found to be bradycardic to 30 last night. Metoprolol decreased to 50 mg twice a day. * Continue Apixaban 5mg BID, * Await ECHO * Discontinue aspirin, Patient does not need aspirin while on Eliquis. * Cardio recommendations appreciated * TSH 0.120, Free T4 within normal range. * Continue ceftriaxone and azithromycin for community-acquired pneumonia * Blood cultures - negative after 1 day DVT prophylaxis; Eliquis Patient is full code Problem List: 1. New onset a-fib 2. Pneumonia Pain Ratin Pain Location: None Pain Goal: Remain pain free Pain Plan: None Tomorrow's Labs & Rationales: None
--- NOTE | 2017-06-28 09:50 | PN- Pulmonary ---
Subjective HPI/Critical Care Issues: Still wheezing significantly Fatigue No sputum Objective Current Medications: Current Medications Sig/Christopher Start time Last Medication Dose Route Stop Time Status Admin Albuterol Sulfate 2 PUF Q4 PRN 06/27 0445 AC INH Apixaban 5 MG BID 06/27 1302 AC 06/28 PO 0928 Azithromycin 500 MG DAILY 06/27 1000 AC 06/28 Dextrose/Water 250 ML IV 0930 Benzonatate 100 MG TID PRN 06/28 0119 AC 06/28 PO 0928 Budesonide/ 2 PUF BID 06/27 2200 AC 06/28 Formoterol Fumarate INH 0929 Ceftriaxone Sodium 1,000 MG DAILY 06/27 1000 AC 06/28 IV 0928 Guaifenesin 600 MG Q12 06/27 1429 AC 06/28 PO 0928 Heparin Sodium 25,000 UNIT Q24H 06/26 2300 DC 06/27 (Porcine) IV 0026 Sodium Chloride 500 ML Hydrochlorothiazide 12.5 MG DAILY 06/27 1000 AC 06/28 PO 0928 Hydrocodone Bitart/ 1 TAB ONCE ONE 06/27 2100 DC 06/27 Acetaminophen PO 06/27 2101 2120 Ipratropium [place] 2.5 ML Q6 06/27 2054 AC INH Metoprolol Tartrate 75 MG BID 06/28 1000 DC PO Metoprolol Tartrate 50 MG BID 06/28 1000 AC 06/28 PO 0928 Metoprolol Tartrate 100 MG BID 06/27 1000 DC 06/27 PO 2120 Omeprazole 20 MG DAILY AC 06/27 0948 AC 06/28 PO 0614 Thyroid 45 MG DAILY AC 06/28 0700 AC PO Thyroid 1 GR DAILY AC 06/27 0700 DC PO Laboratory Tests 06/28 06/27 0620 0955 Chemistry Sodium (137 - 145 mmol/L) 138 142 Potassium (3.5 - 5.1 mmol/L) 3.9 3.8 Chloride (98 - 107 mmol/L) 102 102 Carbon Dioxide (22 - 30 mmol/L) 29 25 Anion Gap (5 - 16) 7 14 BUN (7 - 17 mg/dL) 24 H 18 H Creatinine (0.5 - 1.0 mg/dL) 0.5 0.4 L Estimated GFR (>60 ml/min) > 60 > 60 BUN/Creatinine Ratio (7 - 25 %) 48.0 H 45.0 H TSH (0.270 - 4.200 uIU/mL) 0.120 L Free T4 (0.78 - 2.44 ng/dL) 1.44 Coagulation APTT (25 - 37 SEC) 58 H Hematology CBC w Diff NO MAN DIFF REQ NO MAN DIFF REQ WBC (4.8 - 10.8 /CUMM) 10.1 4.6 L RBC (4.20 - 5.40 /CUMM) 4.59 5.07 Hgb (12.0 - 16.0 G/DL) 13.5 14.9 Hct (37 - 47 %) 40.9 45.2 MCV (81.0 - 99.0 FL) 89.1 89.2 MCH (27.0 - 31.0 PG) 29.3 29.5 MCHC (33.0 - 37.0 G/DL) 32.9 L 33.0 RDW (11.5 - 14.5 %) 14.6 H 14.3 Plt Count (130 - 400 /CUMM) 224 259 MPV (7.4 - 10.4 FL) 11.6 H 11.5 H Gran % (42.2 - 75.2 %) 81.8 H 83.0 H Lymphocytes % (20.5 - 51.1 %) 8.4 L 12.7 L Monocytes % (1.7 - 9.3 %) 9.4 H 4.2 Eosinophils % (0 - 5 %) 0.3 0 Basophils % (0.0 - 2.0 %) 0.1 0.1 Absolute Granulocytes (1.4 - 6.5 /CUMM) 8.2 H 3.8 Absolute Lymphocytes (1.2 - 3.4 /CUMM) 0.9 L 0.6 L Absolute Monocytes (0.10 - 0.60 /CUMM) 1.0 H 0.2 Absolute Eosinophils (0.0 - 0.7 /CUMM) 0 0 Absolute Basophils (0.0 - 0.2 /CUMM) 0 0 06/27 06/26 0420 2221 Chemistry Troponin I (< 0.11 ng/ml) 0.01 < 0.01 Coagulation PT (9.4 - 12.5 SEC) 12.4 INR (0.90 - 1.19) 1.18 APTT (25 - 37 SEC) 29 D-Dimer High Sensitivty (0 - 243 ng/ml) 206 Microbiology Date/Time Procedure - Status Source Growth 02/17 2111 Respiratory Culture - COLB LOWER RESP 06/27 2110 Gram Stain - COLB LOWER RESP 06/260 Blood Culture - RES BLOOD 06/26 2220 Blood Culture - RES BLOOD Vital Signs & I&O Last 24 Hrs of Vitals and I&O: Vital Signs Date Time Temp Pulse Resp B/P B/P Pulse O2 O2 Flow FiO2 Mean Ox Delivery Rate 06/28 0928 92 132/70 06/28 0700 97.9 96 20 132/70 92 06/28 0000 Room Air 06/27 2300 99.3 71 20 158/82 95 06/27 2120 78 130/72 06/27 1350 97.7 70 20 130/70 91 Room Air 06/27 1021 Room Air Intake & Output 06/28 1600 06/28 0800 06/28 0000 Intake Total 320 300 Output Total Balance 320 300 Intake, IV 20 Intake, Oral 320 280 Laboratory Tests 06/28 06/27 0620 0955 Chemistry Sodium (137 - 145 mmol/L) 138 142 Potassium (3.5 - 5.1 mmol/L) 3.9 3.8 Chloride (98 - 107 mmol/L) 102 102 Carbon Dioxide (22 - 30 mmol/L) 29 25 Anion Gap (5 - 16) 7 14 BUN (7 - 17 mg/dL) 24 H 18 H Creatinine (0.5 - 1.0 mg/dL) 0.5 0.4 L Estimated GFR (>60 ml/min) > 60 > 60 BUN/Creatinine Ratio (7 - 25 %) 48.0 H 45.0 H TSH (0.270 - 4.200 uIU/mL) 0.120 L Free T4 (0.78 - 2.44 ng/dL) 1.44 Coagulation APTT (25 - 37 SEC) 58 H Hematology CBC w Diff NO MAN DIFF REQ NO MAN DIFF REQ WBC (4.8 - 10.8 /CUMM) 10.1 4.6 L RBC (4.20 - 5.40 /CUMM) 4.59 5.07 Hgb (12.0 - 16.0 G/DL) 13.5 14.9 Hct (37 - 47 %) 40.9 45.2 MCV (81.0 - 99.0 FL) 89.1 89.2 MCH (27.0 - 31.0 PG) 29.3 29.5 MCHC (33.0 - 37.0 G/DL) 32.9 L 33.0 RDW (11.5 - 14.5 %) 14.6 H 14.3 Plt Count (130 - 400 /CUMM) 224 259 MPV (7.4 - 10.4 FL) 11.6 H 11.5 H Gran % (42.2 - 75.2 %) 81.8 H 83.0 H Lymphocytes % (20.5 - 51.1 %) 8.4 L 12.7 L Monocytes % (1.7 - 9.3 %) 9.4 H 4.2 Eosinophils % (0 - 5 %) 0.3 0 Basophils % (0.0 - 2.0 %) 0.1 0.1 Absolute Granulocytes (1.4 - 6.5 /CUMM) 8.2 H 3.8 Absolute Lymphocytes (1.2 - 3.4 /CUMM) 0.9 L 0.6 L Absolute Monocytes (0.10 - 0.60 /CUMM) 1.0 H 0.2 Absolute Eosinophils (0.0 - 0.7 /CUMM) 0 0 Absolute Basophils (0.0 - 0.2 /CUMM) 0 0 06/27 06/26 0420 2221 Chemistry Troponin I (< 0.11 ng/ml) 0.01 < 0.01 Coagulation PT (9.4 - 12.5 SEC) 12.4 INR (0.90 - 1.19) 1.18 APTT (25 - 37 SEC) 29 D-Dimer High Sensitivty (0 - 243 ng/ml) 206 Microbiology Date/Time Procedure - Status Source Growth 06/27 2110 Respiratory Culture - COLB LOWER RESP 06/27 2110 Gram Stain - COLB LOWER RESP 06/26 2340 Blood Culture - RES BLOOD 06/26 2221 Blood Culture - RES BLOOD Impression/Plan Impression/Plan Impression/Plan: General Appearance Alert, Oriented X3, Cooperative, No Acute Distress Skin No Rashes Skin Temp/Moisture Exam: Warm/Dry Sepsis Skin Exam (color): Normal for Ethnicity HEENT Atraumatic, PERRLA, EOMI, Mucous Membr. moist/pink Neck Supple, No JVD, No thryomegaly Cardiovascular Normal S1, Normal S2, irregularly irregular rhythm Lungs Sig wheezing Abdomen Normal Bowel Sounds, Soft, No Tenderness Neurological Normal Speech, Strength at 5/5 X4 Ext, Normal Tone, Sensation Intact, Cranial Nerves 3-12 NL Extremities No Clubbing, No Cyanosis, No Edema Vascular Pulses Symmetrical IMRESSION * Bronchitis with pna * New onset afib now in sinus * HTN, Hyperlipedemia and hypothryoid * HIgh Kris vasc of 3 needs anticoag * Mild hyperthyroid as she is on armour thyroid REC COnt abx Swab nose for MRSA RPt Flu swab Change neb to duoneb Start budesonide neb rx 0.5mg bid [place] thyroid eq to 45 mg daily pharmacy to adjust the dose Apixaban Out pt monitoring with a loop recorder Start symbicort bid Sputum culture If cough is a prob start robutussin with codeine one tsp po q [address] without contrast if no improvement
[2017-06-28 13:50] VITALS: BP 140/76
--- NOTE | 2017-06-28 18:35 | ECHOCARDIOGRAM REPORT ---
LEE CRAIG Age: 66 : 1950 Gender: F Exam Date: 06/28/2017 11:55 Exam Location: [address] Ht (in): 63 Wt (lb): 245 BSA: 2.29 BP: 132 / 70 Ordering Physician: Bucky Alba MD Referring Physician: Yohan Valencia MD Technologist: Gui Joaquin [facility] Room Number: [id number] Indications: AFIB/FLUTTER Rhythm: Technical Quality: Fair FINDINGS Left Ventricle Normal global left ventricular size, wall thickness, systolic function with no obvious regional wall motion abnormalities. Left ventricular ejection fraction is estimated at 55 %. Abnormal relaxation filling pattern of the left ventricle (stage 1 diastolic dysfunction). Right Ventricle Normal right ventricular size and function. Right Atrium Normal right atrial size. Left Atrium Normal left atrial size. Mitral Valve Structurally normal mitral valve. Trace mitral regurgitation. Aortic Valve No aortic stenosis. Trileaflet aortic valve. Tricuspid Valve Structurally normal tricuspid valve. Trace tricuspid regurgitation. Unable to estimate the right ventricular systolic pressure. Pulmonic Valve Pulmonic valve not well visualized, grossly normal. Pericardium No pericardial effusion. Great Vessels Normal size aortic root. CONCLUSIONS Normal global left ventricular size, wall thickness, systolic function with no obvious regional wall motion abnormalities. Left ventricular ejection fraction is estimated at 55 %. Abnormal relaxation filling pattern of the left ventricle (stage 1 diastolic dysfunction). Normal right ventricular size and function. No pericardial effusion. Emanuel Tiwari M.D. (Electronically Signed) Final Date: 28 June 2017 18:34 MEASUREMENTS (Male / Female) Normal Values 2D ECHO LV Diastolic Diameter PLAX 5.5 cm 4.2 - 5.9 / 3.9 - 5.3 cm LV Systolic Diameter PLAX 3.4 cm 2.1 - 4.0 cm LV Fractional Shortening PLAX 38.2 % 25 - 46 % LV Ejection Fraction 2D Teich 67.8 % IVS Diastolic Thickness 1.0 cm LVPW Diastolic Thickness 1.0 cm LV Relative Wall Thickness 0.4 RV Internal Dim ED PLAX 2.3 cm 1.9 - 3.8 cm LVOT Diameter 2.1 cm Aortic Root Diameter 3.6 cm LA Systolic Diameter LX 4.4 cm 3.0 - 4.0 / 2.7 - 3.8 cm RVOT Diameter 2.3 cm 2.5 - 2.9 cm LA Volume 83.0 cm 18 - 58 / 22 - 52 cm RV Diastolic Area 4.1 cm 11 - 28 cm Ascending Aorta Diameter 2.9 cm DOPPLER AV Peak Velocity 123.0 cm/s AV Peak Gradient 6.1 mmHg AV Mean Velocity 78.0 cm/s AV Mean Gradient 3.0 mmHg AV Velocity Time Integral 23.3 cm LVOT Peak Velocity 77.5 cm/s LVOT Peak Gradient 2.4 mmHg LVOT Mean Velocity 49.4 cm/s LVOT Mean Gradient 1.0 mmHg LVOT Velocity Time Integral 15.1 cm LVOT Stroke Volume 52.3 cm AV Area Cont Eq vti 2.2 cm AV Area Cont Eq pk 2.2 cm MV Peak Velocity 93.3 cm/s MV Peak Gradient 3.5 mmHg MV Mean Velocity 53.1 cm/s MV Mean Gradient 1.0 mmHg Mitral E Point Velocity 57.3 cm/s Mitral A Point Velocity 86.2 cm/s Mitral E to A Ratio 0.7 MV PHT Velocity 57.6 cm/s MV Deceleration [place] 162.0 cm/s MV Pressure Half Time 106.7 ms MV Area PHT 2.1 cm MV Deceleration Time 261.0 ms TV Peak E Velocity 68.6 cm/s TV Peak A Velocity 45.4 cm/s TV E to A Ratio 1.5 PV Peak Velocity 89.6 cm/s PV Peak Gradient 3.2 mmHg PV Mean Velocity 68.5 cm/s PV Mean Gradient 2.0 mmHg PV Velocity Time Integral 16.1 cm QpQs Shunt Ratio 1.1 PV Area Cont Eq vti 3.6 cm PV Area Cont Eq pk 2.8 cm LV E' Lateral Velocity 7.9 cm/s Mitral E to LV E' Lateral Ratio 7.3 LV E' Septal Velocity 8.6 cm/s Mitral E to LV E' Septal Ratio 6.7
[2017-06-28 21:52] VITALS: BP 128/80
--- NOTE | 2017-06-29 04:16 | Event Note ---
Event Note Event Note: 4 AM-patient went into A. fib with a heart rate of 110-120. This is a patient with new onset A. fib converted to sinus rhythm following Cardizem push. She is on Eliquis and metoprolol 50 twice a day On examination patient was lying comfortably in her bed. She complains of funny sensation in her heart. She denies chest pain, chest pressure, left arm pain, jaw pain, shortness of breath, palpitation. She though complaints of heartburn. Vitals- We will take a stat EKG and troponin. We will monitor her heart rate. If the heart rate consistently goes above 110 we will give Cardizem/metoprolol IV.
[2017-06-29 06:00] VITALS: BP 140/70
--- NOTE | 2017-06-29 07:28 | PN- Housestaff ---
Subjective Follow-up For: New-onset atrial fibrillation CAP Tele-Events Since Last Visit: Afib with RVR HR 61-150s Subjective: Overnight patient went into afib with HR 110-120. This morning patient reports no CP, palpitations, SOB or lightheadedness. Review of Systems Constitutional: Reports: see HPI. Objective Last 24 Hrs of Vital Signs/I&O Vital Signs Date Time Temp Pulse Resp B/P B/P Pulse O2 O2 Flow FiO2 Mean Ox Delivery Rate 06/29 1432 120 140/70 06/29 1400 98.0 66 20 146/80 94 Room Air 06/29 0833 92 Room Air Room Air 06/29 0805 120 140/70 06/29 0600 98.3 120 20 140/70 93 Room Air 06/29 0011 93 Room Air 06/29 0000 Room Air 06/28 2217 76 128/80 06/28 2152 98.4 72 20 128/80 92 Room Air Intake & Output 06/29 1600 06/29 0800 06/29 0000 Intake Total 500 120 120 Output Total Balance 500 120 120 Intake, Oral 500 120 120 Physical Exam General Appearance: Alert, Oriented X3, Cooperative, No Acute Distress Cardiovascular: Normal S1, Normal S2, Irregular rate Lungs: BL wheezing Abdomen: Normal Bowel Sounds, Soft, No Tenderness Extremities: No Edema Current Medications: Current Medications Sig/Christopher Start time Last Medication Dose Route Stop Time Status Admin Albuterol Sulfate 3 ML TID 06/28 2200 DC 06/28 INH 2353 Albuterol Sulfate 2 PUF Q4 PRN 06/27 0445 DC INH Apixaban 5 MG BID 06/27 1302 AC 06/29 PO 0804 Azithromycin 500 MG DAILY 06/27 1000 DC 06/29 Dextrose/Water 250 ML IV 0820 Benzonatate 100 MG TID PRN 06/28 0119 AC 06/29 PO 1433 Budesonide/ 2 PUF BID 06/28 1424 AC 06/29 Formoterol Fumarate INH 0811 Ceftriaxone Sodium 1,000 MG DAILY 06/27 1000 DC 06/29 IV 0807 Diltiazem HCl 30 MG Q6 06/29 1310 AC 06/29 PO 1432 Famotidine 20 MG ONCE ONE 06/28 2130 DC 06/28 PO 06/28 2131 2330 Fluticasone 2 PUF BID 06/29 1134 AC 06/29 Propionate INH 1432 Guaifenesin 10 ML Q6P PRN 06/28 1000 AC PO Guaifenesin 600 MG Q12 06/27 1429 AC 06/29 PO 0805 Hydrochlorothiazide 12.5 MG DAILY 06/27 1000 AC 06/29 PO 0804 Hydrocodone Bitart/ 1 TAB ONCE ONE 06/28 1700 DC 06/28 Acetaminophen PO 06/28 1701 [address] [place] 2.5 ML TID PRN 06/29 1136 AC INH Ipratropium [place] 2.5 ML TID 06/28 2200 DC 06/28 INH 2354 Metoprolol Tartrate 50 MG BID 06/28 1000 AC 06/29 PO 0805 Omeprazole 20 MG DAILY AC 06/27 0948 AC 06/29 PO 0555 Thyroid 45 MG DAILY AC 06/28 0700 AC 06/29 PO 0556 [address] [place] 1 PUF DAILY 06/29 1139 AC 06/29 INH 1432 Tramadol HCl 25 MG ONCE ONE 06/28 1700 CAN PO 06/28 1701 Trimethoprim/ 1 TAB BID 06/29 1137 AC 06/29 Sulfamethoxazole PO 07/06 1000 1431 Last 24 Hrs of Lab/Diaz Results Last 24 Hrs of Labs/Mics: Laboratory Tests 06/29/17 0220: Troponin I 0.02 Microbiology 06/29 1509 STOOL: Clostridium difficile Toxin A & B - COLB 06/28 1858 UPPER RESP: Surveillance Culture - RECD Assessment/Plan Assessment: Ms. Huffman is a 66-year-old female with a past medical history significant for hypothyroidism, HTN, HLD, OA, GERD who presents complaining of a five-day history of URI-like symptoms and was found to be in A. fib. CXR is consistent with possible pneumonia. She shows no signs of fluid overload on exam, no lower extremity edema, no crackles on auscultation, no JVD. On telemetry she went into SR but now back in afib. Problem list 1. New-onset atrial fibrillation 2. CAP Plan: * Cardio recommendations appreciated * Pulm recommendations appreciated * ECHO showed stage 1 diastolic dysfunction without regional wall motion abnormalities, EF 55% * Apixaban 5mg BID, Metoprolol 50 mg BID * Start Cardizem 30 mg q6h for better rate control * Start TMP/SMX DS for 7 days * Continue Thyroid 45 mg * TRC PRN Problem List: 1. New onset a-fib 2. Pneumonia Pain Ratin Pain Location: NA Pain Goal: Remain pain free Pain Plan: NA Tomorrow's Labs & Rationales: BEP for renal function and
--- NOTE | 2017-06-29 10:52 | PN- Pulmonary ---
Subjective HPI/Critical Care Issues: Still wheezing but better Objective Current Medications: Current Medications Sig/Christopher Start time Last Medication Dose Route Stop Time Status Admin Albuterol Sulfate 3 ML TID 06/28 2200 AC 06/28 INH 2353 Albuterol Sulfate 2 PUF Q4 PRN 06/27 0445 AC INH Apixaban 5 MG BID 06/27 1302 AC 06/29 PO 0804 Azithromycin 500 MG DAILY 06/27 1000 AC 06/29 Dextrose/Water 250 ML IV 0820 Benzonatate 100 MG TID PRN 06/28 0119 AC 06/28 PO 1543 Budesonide/ 2 PUF BID 06/28 1424 AC 06/29 Formoterol Fumarate INH 0811 Budesonide/ 2 PUF BID 06/27 2200 DC 06/28 Formoterol Fumarate INH 0929 Ceftriaxone Sodium 1,000 MG DAILY 06/27 1000 AC 06/29 IV 0807 Famotidine 20 MG ONCE ONE 06/28 2130 DC 06/28 PO 06/28 2131 2330 Guaifenesin 10 ML Q6P PRN 06/28 1000 AC PO Guaifenesin 600 MG Q12 06/27 1429 AC 06/29 PO 0805 Hydrochlorothiazide 12.5 MG DAILY 06/27 1000 AC 06/29 PO 0804 Hydrocodone Bitart/ 1 TAB ONCE ONE 06/28 1700 DC 06/28 Acetaminophen PO 06/28 1701 1725 Ipratropium [place] 2.5 ML TID 06/28 2200 AC 06/28 INH 2354 Ipratropium [place] 2.5 ML Q6 06/27 2054 DC INH Metoprolol Tartrate 50 MG BID 06/28 1000 AC 06/29 PO 0805 Omeprazole 20 MG DAILY AC 06/27 0948 AC 06/29 PO 0555 Thyroid 45 MG DAILY AC 06/28 0700 AC 06/29 PO 0556 Tramadol HCl 25 MG ONCE ONE 06/28 1700 CAN PO 06/28 1701 Vital Signs & I&O Last 24 Hrs of Vitals and I&O: Vital Signs Date Time Temp Pulse Resp B/P B/P Pulse O2 O2 Flow FiO2 Mean Ox Delivery Rate 06/29 0833 92 Room Air Room Air 06/29 0805 120 140/70 06/29 0600 98.3 120 20 140/70 93 Room Air 06/29 0011 93 Room Air 06/29 0000 Room Air 06/28 2217 76 128/80 06/28 2152 98.4 72 20 128/80 92 Room Air 06/28 1600 Room Air 06/28 1350 98.6 77 20 140/76 92 Room Air Intake & Output 06/29 1600 06/29 0800 06/29 0000 Intake Total 120 120 Output Total Balance 120 120 Intake, Oral 120 120 Laboratory Tests 06/29 06/28 0220 0620 Chemistry Sodium (137 - 145 mmol/L) 138 Potassium (3.5 - 5.1 mmol/L) 3.9 Chloride (98 - 107 mmol/L) 102 Carbon Dioxide (22 - 30 mmol/L) 29 Anion Gap (5 - 16) 7 BUN (7 - 17 mg/dL) 24 H Creatinine (0.5 - 1.0 mg/dL) 0.5 Estimated GFR (>60 ml/min) > 60 BUN/Creatinine Ratio (7 - 25 %) 48.0 H Troponin I (< 0.11 ng/ml) 0.02 Hematology CBC w Diff NO MAN DIFF REQ WBC (4.8 - 10.8 /CUMM) 10.1 RBC (4.20 - 5.40 /CUMM) 4.59 Hgb (12.0 - 16.0 G/DL) 13.5 Hct (37 - 47 %) 40.9 MCV (81.0 - 99.0 FL) 89.1 MCH (27.0 - 31.0 PG) 29.3 MCHC (33.0 - 37.0 G/DL) 32.9 L RDW (11.5 - 14.5 %) 14.6 H Plt Count (130 - 400 /CUMM) 224 MPV (7.4 - 10.4 FL) 11.6 H Gran % (42.2 - 75.2 %) 81.8 H Lymphocytes % (20.5 - 51.1 %) 8.4 L Monocytes % (1.7 - 9.3 %) 9.4 H Eosinophils % (0 - 5 %) 0.3 Basophils % (0.0 - 2.0 %) 0.1 Absolute Granulocytes (1.4 - 6.5 /CUMM) 8.2 H Absolute Lymphocytes (1.2 - 3.4 /CUMM) 0.9 L Absolute Monocytes (0.10 - 0.60 /CUMM) 1.0 H Absolute Eosinophils (0.0 - 0.7 /CUMM) 0 Absolute Basophils (0.0 - 0.2 /CUMM) 0 Microbiology Date/Time Procedure - Status Source Growth 06/28 1858 Surveillance Culture - RECD UPPER RESP 06/28 1545 Influenza Virus A & B Rapid Smear - COMP NASOPHARYN 06/27 2110 Respiratory Culture - COLB LOWER RESP 06/27 2110 Gram Stain - COLB LOWER RESP 06/26 2340 Blood Culture - RES BLOOD 06/26 2221 Blood Culture - RES BLOOD Impression/Plan Impression/Plan Impression/Plan: Impression/Plan: General Appearance Alert, Oriented X3, Cooperative, No Acute Distress Skin No Rashes Skin Temp/Moisture Exam: Warm/Dry Sepsis Skin Exam (color): Normal for Ethnicity HEENT Atraumatic, PERRLA, EOMI, Mucous Membr. moist/pink Neck Supple, No JVD, No thryomegaly Cardiovascular Normal S1, Normal S2, irregularly irregular rhythm Lungs Sig wheezing Abdomen Normal Bowel Sounds, Soft, No Tenderness Neurological Normal Speech, Strength at 5/5 X4 Ext, Normal Tone, Sensation Intact, Cranial Nerves 3-12 NL Extremities No Clubbing, No Cyanosis, No Edema Vascular Pulses Symmetrical IMRESSION * Bronchitis with pna * New onset Pafib now in sinus * HTN, Hyperlipedemia and hypothryoid * HIgh Kris vasc of 3 needs anticoag * Mild hyperthyroid as she is on armour thyroid REC COnt abx Start spiriva one puff daily Dc albuterol nebs and use prn ipratropium for wheezing Start flovent 110 2 puff bid Start budesonide neb rx 0.5mg bid [place] thyroid eq to 45 mg daily pharmacy to adjust the dose Apixaban DC current abx and start bactrim ds one tab po bid for seven days Stable for dc in am AMbulate Out pt monitoring with a loop recorder
--- NOTE | 2017-06-29 10:54 | PN- Att Addend ---
Attending Addendum Attending Brief Note Events over the weekend noted that originally she converted back to normal sinus rhythm from atrial fibrillation with states after breathing treatments she feels the palpitations apparently she had another episode of atrial fibrillation the monitor with cardiology to reevaluate this. Also still wheezing a lot states to respiratory treatment helps her. Kem Bay MD in evaluating this and I changed antibiotic to continue the treatments and observation for her acute bronchitis Intake & Output 06/29 1600 06/29 0400 06/28 1600 06/28 0400 06/27 1600 06/27 0400 Intake Total 157 259 0768 300 1090 240 Output Total 750 Balance 273 678 3701 300 340 240 Intake, IV 260 20 370 Intake, Oral 835 918 7362 280 720 240 Number 1 Bowel Movements Output, Urine 750 Patient 245 lb Weight Weight Reported by Patient Measurement Method Current Medications Sig/Christopher Start time Last Medication Dose Route Stop Time Status Admin Albuterol Sulfate 3 ML TID 06/28 2200 AC 06/28 INH 2353 Albuterol Sulfate 2 PUF Q4 PRN 06/27 0445 AC INH Apixaban 5 MG BID 06/27 1302 AC 06/29 PO 0804 Azithromycin 500 MG DAILY 06/27 1000 AC 06/29 Dextrose/Water 250 ML IV 0820 Benzonatate 100 MG TID PRN 06/28 0119 AC 06/28 PO 1543 Budesonide/ 2 PUF BID 06/28 1424 AC 06/29 Formoterol Fumarate INH 0811 Budesonide/ 2 PUF BID 06/27 2200 DC 06/28 Formoterol Fumarate INH 0929 Ceftriaxone Sodium 1,000 MG DAILY 06/27 1000 AC 06/29 IV 0807 Famotidine 20 MG ONCE ONE 06/28 2130 DC 06/28 PO 06/28 2131 2330 Guaifenesin 10 ML Q6P PRN 06/28 1000 AC PO Guaifenesin 600 MG Q12 06/27 1429 AC 06/29 PO 0805 Hydrochlorothiazide 12.5 MG DAILY 06/27 1000 AC 06/29 PO 0804 Hydrocodone Bitart/ 1 TAB ONCE ONE 06/28 1700 DC 06/28 Acetaminophen PO 06/28 1701 1725 Ipratropium [place] 2.5 ML TID 06/28 2200 AC 06/28 INH 2354 Ipratropium [place] 2.5 ML Q6 06/27 2054 DC INH Metoprolol Tartrate 50 MG BID 06/28 1000 AC 06/29 PO 0805 Omeprazole 20 MG DAILY AC 06/27 0948 AC 06/29 PO 0555 Thyroid 45 MG DAILY AC 06/28 0700 AC 06/29 PO 0556 Tramadol HCl 25 MG ONCE ONE 06/28 1700 CAN PO 06/28 1701 Laboratory Tests 06/29/17 0220: Troponin I 0.02 06/28/17 0620: Anion Gap 7, Estimated GFR > 60, BUN/Creatinine Ratio 48.0 H, CBC w Diff NO MAN DIFF REQ, RBC 4.59, MCV 89.1, MCH 29.3, MCHC 32.9 L, RDW 14.6 H, MPV 11.6 H, Gran % 81.8 H, Lymphocytes % 8.4 L, Monocytes % 9.4 H, Eosinophils % 0.3, Basophils % 0.1, Absolute Granulocytes 8.2 H, Absolute Lymphocytes 0.9 L, Absolute Monocytes 1.0 H, Absolute Eosinophils 0, Absolute Basophils 0 06/27/17 0955: Anion Gap 14, Estimated GFR > 60, BUN/Creatinine Ratio 45.0 H, TSH 0.120 L, Free T4 1.44, APTT 58 H, CBC w Diff NO MAN DIFF REQ, RBC 5.07, MCV 89.2, MCH 29.5, MCHC 33.0, RDW 14.3, MPV 11.5 H, Gran % 83.0 H, Lymphocytes % 12.7 L, Monocytes % 4.2, Eosinophils % 0, Basophils % 0.1, Absolute Granulocytes 3.8, Absolute Lymphocytes 0.6 L, Absolute Monocytes 0.2, Absolute Eosinophils 0, Absolute Basophils 0 06/27/17 0420: Troponin I 0.01 06/26/172220: Troponin I < 0.01, PT 12.4, INR 1.18, APTT 29, D-Dimer High Sensitivty 206 Microbiology 06/28 1857 UPPER RESP: Surveillance Culture - RECD 06/28 1545 NASOPHARYN: Influenza Virus A & B Rapid Smear - COMP 06/27 2110 LOWER RESP: Respiratory Culture - COLB 06/27 2110 LOWER RESP: Gram Stain - COLB 06/26 2340 BLOOD: Blood Culture - RES 06/26 2220 BLOOD: Blood Culture - RES Microbiology 06/28 1857 UPPER RESP: Surveillance Culture - RECD 06/28 1545 NASOPHARYN: Influenza Virus A & B Rapid Smear - COMP 06/27 2110 LOWER RESP: Respiratory Culture - COLB 06/27 2110 LOWER RESP: Gram Stain - COLB 06/26 2339 BLOOD: Blood Culture - RES 06/26 2220 BLOOD: Blood Culture - RES Vital Signs Date Time Temp Pulse Resp B/P B/P Pulse O2 O2 Flow FiO2 Mean Ox Delivery Rate 06/29 0833 92 Room Air Room Air 06/29 0805 120 140/70 06/29 0600 98.3 120 20 140/70 93 Room Air 06/29 0011 93 Room Air 06/29 0000 Room Air 06/28 2217 76 128/80 06/28 2152 98.4 72 20 128/80 92 Room Air 06/28 1600 Room Air 06/28 1350 98.6 77 20 140/76 92 Room Air
--- NOTE | 2017-06-29 11:50 | PN- Cardiology ---
Subjective Subjective: Still with some wheezing and cough but not worse. She did have some low-level palpitations when she went back into atrial fibrillation. Objective Vital Signs and I&Os Vital Signs Date Time Temp Pulse Resp B/P B/P Pulse O2 O2 Flow FiO2 Mean Ox Delivery Rate 06/29 0833 92 Room Air Room Air 06/29 0805 120 140/70 06/29 0600 98.3 120 20 140/70 93 Room Air 06/29 0011 93 Room Air 06/29 0000 Room Air 06/28 2217 76 128/80 06/28 2152 98.4 72 20 128/80 92 Room Air 06/28 1600 Room Air 06/28 1350 98.6 77 20 140/76 92 Room Air Intake & Output 06/29 1600 06/29 0800 06/29 0000 06/28 1600 06/28 0800 06/28 0000 Intake Total 801 059 6599 320 300 Output Total Balance 567 995 9483 320 300 Intake, IV 260 20 Intake, Oral 120 120 800 320 280 Physical Exam: General: no apparent distress. Alert. Eyes: No obvious scleral icterus. HEENT: No jugular venous distention or abnormal jugular venous pulsations. Cardiovascular: Normal intensity S1/S2. Irregular Respiratory: Scattered wheezes Abdomen: Soft, nontender with no guarding or rebound tenderness. Musculoskeletal: No clubbing or cyanosis noted, no edema Skin: No obvious rashes or ulcerations. Neurologic: No gross focal deficits noted. Lymph: No gross lymphadenopathy. Current Medications: Current Medications Sig/Christopher Start time Last Medication Dose Route Stop Time Status Admin Albuterol Sulfate 3 ML TID 06/28 2200 DC 06/28 INH 2353 Albuterol Sulfate 2 PUF Q4 PRN 06/27 0445 DC INH Apixaban 5 MG BID 06/27 1302 AC 06/29 PO 0804 Azithromycin 500 MG DAILY 06/27 1000 DC 06/29 Dextrose/Water 250 ML IV 0820 Benzonatate 100 MG TID PRN 06/28 0119 AC 06/28 PO 1543 Budesonide/ 2 PUF BID 06/28 1424 AC 06/29 Formoterol Fumarate INH 0811 Budesonide/ 2 PUF BID 06/27 2200 DC 06/28 Formoterol Fumarate INH 0929 Ceftriaxone Sodium 1,000 MG DAILY 06/27 1000 DC 06/29 IV 0807 Famotidine 20 MG ONCE ONE 06/28 2130 DC 06/28 PO 06/28 2131 2330 Fluticasone 2 PUF BID 06/29 1134 AC Propionate INH Guaifenesin 10 ML Q6P PRN 06/28 1000 AC PO Guaifenesin 600 MG Q12 06/27 1429 AC 06/29 PO 0805 Hydrochlorothiazide 12.5 MG DAILY 06/27 1000 AC 06/29 PO 0804 Hydrocodone Bitart/ 1 TAB ONCE ONE 06/28 1700 DC 06/28 Acetaminophen PO 06/28 1701 1725 Ipratropium [place] 2.5 ML TID PRN 06/29 1136 AC INH Ipratropium [place] 2.5 ML TID 06/28 2200 DC 06/28 INH 2354 Ipratropium [place] 2.5 ML Q6 06/27 2054 DC INH Metoprolol Tartrate 50 MG BID 06/28 1000 AC 06/29 PO 0805 Omeprazole 20 MG DAILY AC 06/27 0948 AC 06/29 PO 0555 Thyroid 45 MG DAILY AC 06/28 0700 AC 06/29 PO 0556 Tiotropium [place] 1 PUF DAILY 06/29 1139 AC INH Tramadol HCl 25 MG ONCE ONE 06/28 1700 CAN PO 06/28 1701 Trimethoprim/ 1 TAB BID 06/29 1137 AC Sulfamethoxazole PO 07/06 1000 Results Last 48 Hrs of Labs/Mics: Laboratory Tests 06/29/17 0220: Troponin I 0.02 06/28/17 0620: Anion Gap 7, Estimated GFR > 60, BUN/Creatinine Ratio 48.0 H, CBC w Diff NO MAN DIFF REQ, RBC 4.59, MCV 89.1, MCH 29.3, MCHC 32.9 L, RDW 14.6 H, MPV 11.6 H, Gran % 81.8 H, Lymphocytes % 8.4 L, Monocytes % 9.4 H, Eosinophils % 0.3, Basophils % 0.1, Absolute Granulocytes 8.2 H, Absolute Lymphocytes 0.9 L, Absolute Monocytes 1.0 H, Absolute Eosinophils 0, Absolute Basophils 0 Microbiology 06/28 1545 NASOPHARYN: Influenza Virus A & B Rapid Smear - COMP Recent Imaging Studies: Telemetry tracings were personally reviewed and shows sinus rhythm with conversion back to atrial fibrillation with rapid ventricular response rate Echo: Normal global left ventricular size, wall thickness, systolic function with no obvious regional wall motion abnormalities. Left ventricular ejection fraction is estimated at 55 %. Abnormal relaxation filling pattern of the left ventricle (stage 1 diastolic dysfunction). Normal right ventricular size and function. No pericardial effusion. Emanuel Tiwari M.D. (Electronically Signed) Final Date: 28 June 2017 18:34 Assessment/Plan Assessment/Plan 1. Respiratory tract infection 2. New-onset atrial fibrillation with spontaneous conversion back to sinus rhythm and then recurrent atrial fibrillation 3. History of hypertension 4. History of hyperlipidemia 5. History of hypothyroidism Patient had initially converted back to sinus rhythm but is now back in atrial fibrillation with rapid ventricular response rate. Would continue on the current dose of metoprolol but would not increase the dose as she still has some bronchospasm; would instead add Cardizem 30 mg by mouth every 6 hours. Echocardiogram showed no evidence of tachycardia-induced cardiomyopathy. Hemoglobin remained stable on the Eliquis. Simone Tiwari MD [facility] Continue telemetry? Yes
[2017-06-29 14:00] VITALS: BP 146/80
[2017-06-29 22:24] VITALS: BP 120/70
--- NOTE | 2017-06-29 22:38 | CT SCAN REPORT ---
EXAMINATION: CT CHEST WITHOUT CONTRAST CLINICAL INFORMATION: Cough and shortness of breath. Presumptive diagnosis of pneumonia. COMPARISON: Several prior chest x-rays, most recent of which is dated 06/26/2017. TECHNIQUE: Multidetector volumetric CT imaging of the chest was obtained noncontrast. Sagittal and coronal reformations were obtained. DLP: 630.23 mGy-cm. FINDINGS: LUNGS: A few pleural-based reticular nodular opacities are seen in the right lung apex, consistent with scarring. In both lower lobes, slight volume loss is seen with increased reticular and a few patchy groundglass opacities noted, most consistent with subsegmental atelectasis. Similar finding is also seen posteriorly within the inferior lingula. No dense consolidation is seen. There is a 2 mm solid noncalcified nodule in the inferior aspect of the right upper lobe (series 4, image 229), of doubtful clinical significance. No suspicious focal lung nodule or mass. No effusion or pneumothorax. Central airways patent and mildly thickened. LYMPHOVASCULAR STRUCTURES: Aortic and heart size normal. No pericardial effusion. No mediastinal, hilar or axillary adenopathy or free fluid collection. THYROID GLAND: Unremarkable to the extent included. UPPER ABDOMEN: Small retrocardiac hiatal hernia is seen. Postcholecystectomy jake are seen in the gallbladder fossa. Included portions of the solid organs in the upper abdomen within normal limits. BONES: An S-shaped thoracolumbar scoliosis is seen with multilevel moderate degenerative disc disease and vertebral spondylosis throughout the mid and lower thoracic spine and upper lumbar spine. No suspicious focal findings. IMPRESSION: 1. Volume loss, reticular opacities and patchy groundglass opacities are seen in both lower lobes and inferiorly in the lingula, most consistent with areas of subsegmental atelectasis, given the predominantly dependent distribution of disease. No focal dense consolidation is seen to suspect pneumonia. 2. Mild diffuse thickening of the airways is noted, perhaps related to reactive airways disease or bronchitis. 3. Incidental 2 mm solid noncalcified nodule in the right upper lobe. This is of doubtful clinical significance and does not require specific follow-up if there are no underlying risk factors. If there are underlying risk factors, optional CT scan at 12 months can be considered. 4. Small retrocardiac hiatal hernia, post cholecystectomy jake in the gallbladder fossa and multilevel degenerative changes in the spine are also seen.
[2017-06-30 06:33] VITALS: BP 146/100
--- NOTE | 2017-06-30 07:49 | PN- Housestaff ---
Subjective Follow-up For: New-onset atrial fibrillation CAP ?Sick sinus sydrome with 6 sec pauses Tele-Events Since Last Visit: Afib/Aflutter HR 39-71 Subjective: Overnight the patient had a 2-3 sec pauses. This morning she had a 6 sec pause. Patient reports no complaints overnight. She denies CP, palpitations, SOB Review of Systems Constitutional: Reports: see HPI. Objective Last 24 Hrs of Vital Signs/I&O Vital Signs Date Time Temp Pulse Resp B/P B/P Pulse O2 O2 Flow FiO2 Mean Ox Delivery Rate 06/30 0633 97.7 77 20 146/100 93 Room Air 06/30 0015 100 128/78 06/30 0000 Room Air 06/29 2224 98.6 75 20 120/70 92 06/29 2221 120 122/70 06/29 1813 120 140/72 06/29 1600 Room Air 06/29 1432 120 140/70 06/29 1400 98.0 66 20 146/80 94 Room Air 06/29 0833 92 Room Air Room Air Intake & Output 06/30 1600 06/30 0800 06/30 0000 Intake Total 240 120 Output Total Balance 240 120 Intake, Oral 240 120 Physical Exam General Appearance: Alert, Oriented X3, Cooperative Cardiovascular: Irregular rate Lungs: BL wheezing Abdomen: Normal Bowel Sounds, Soft, No Tenderness Extremities: No Edema Current Medications: Current Medications Sig/Christopher Start time Last Medication Dose Route Stop Time Status Admin Albuterol Sulfate 3 ML TID 06/28 2200 DC 06/28 INH 2353 Albuterol Sulfate 2 PUF Q4 PRN 06/27 0445 DC INH Apixaban 5 MG BID 06/27 1302 AC 06/29 PO 2220 Azithromycin 500 MG DAILY 06/27 1000 DC 06/29 Dextrose/Water 250 ML IV 0820 Benzonatate 100 MG TID PRN 06/28 0119 DC 06/29 PO 1433 Budesonide/ 2 PUF BID 06/28 1424 AC 06/29 Formoterol Fumarate INH 2221 Ceftriaxone Sodium 1,000 MG DAILY 06/27 1000 DC 06/29 IV 0807 Diltiazem HCl 30 MG Q6 06/29 1310 AC 06/30 PO 0015 Famotidine 20 MG ONCE ONE 06/29 1830 DC 06/29 PO 06/29 1831 2220 Fluticasone 2 PUF BID 06/29 1134 AC 06/29 Propionate INH 2221 Guaifenesin 10 ML Q6P PRN 06/28 1000 AC PO Guaifenesin 600 MG Q12 06/27 1429 AC 06/29 PO 2220 Hydrochlorothiazide 12.5 MG DAILY 06/27 1000 AC 06/29 PO 0804 Ipratropium [place] 2.5 ML TID PRN 06/29 1136 AC INH Ipratropium [place] 2.5 ML TID 06/28 2200 DC 06/28 INH 2354 Melatonin 5 MG AT BEDTIME 06/29 2200 AC 06/29 PO 2220 Metoprolol Tartrate 50 MG BID 06/28 1000 AC 06/29 PO 2221 Omeprazole 20 MG DAILY AC 06/27 0948 AC 06/30 PO 0507 Thyroid 45 MG DAILY AC 06/28 0700 AC 06/30 PO 0507 Tiotropium [place] 1 PUF DAILY 06/29 1139 AC 06/29 INH 1432 Trimethoprim/ 1 TAB BID 06/29 1137 DC 06/29 Sulfamethoxazole PO 07/06 1000 2220 Last 24 Hrs of Lab/Diaz Results Last 24 Hrs of Labs/Mics: Laboratory Tests 06/30/17 0455: Anion Gap 12, Estimated GFR > 60, BUN/Creatinine Ratio 31.7 H, Phosphorus 4.1, Magnesium 1.8 Microbiology 06/29 1548 STOOL: Clostridium difficile Toxin A & B - RECD Assessment/Plan Assessment: Ms. Huffman is a 66-year-old female with a past medical history significant for hypothyroidism, HTN, HLD, OA, GERD who presents complaining of a five-day history of URI-like symptoms and was found to be in A. fib. CXR is consistent with possible pneumonia. She shows no signs of fluid overload on exam, no lower extremity edema, no crackles on auscultation, no JVD. On telemetry she went into SR but now back in afib. Problem list 1. New-onset atrial fibrillation 2. CAP 3. ? Sick sinus syndrome with 6 sec pauses Plan: * Cardio recommendations appreciated * Pulm recommendations appreciated * ECHO showed stage 1 diastolic dysfunction without regional wall motion abnormalities, EF 55% * Contrinue Apixaban 5mg BID, Metoprolol 50 mg BID * Hold Cardizem 30 mg q6h * Discontinue TMP/SMX DS * Continue Thyroid 45 mg * TRC PRN * Place Atropine and pacer pads at bedside * Continue telemetry monitoring * Patient may require a PM Problem List: 1. New onset a-fib 2. Pneumonia Pain Ratin Pain Location: NA Pain Goal: Remain pain free Pain Plan: NA Tomorrow's Labs & Rationales: None
--- NOTE | 2017-06-30 08:49 | PN- Pulmonary ---
Subjective HPI/Critical Care Issues: Doing well NOTED to HAVE PAUSES Afebrile fatigue Objective Current Medications: Current Medications Sig/Christopher Start time Last Medication Dose Route Stop Time Status Admin Albuterol Sulfate 3 ML TID 06/28 2200 DC 06/28 INH 2353 Albuterol Sulfate 2 PUF Q4 PRN 06/27 0445 DC INH Apixaban 5 MG BID 06/27 1302 AC 06/29 PO 2220 Azithromycin 500 MG DAILY 06/27 1000 DC 06/29 Dextrose/Water 250 ML IV 0820 Benzonatate 100 MG TID PRN 06/28 0119 DC 06/29 PO 1433 Budesonide/ 2 PUF BID 06/28 1424 AC 06/29 Formoterol Fumarate INH 2221 Ceftriaxone Sodium 1,000 MG DAILY 06/27 1000 DC 06/29 IV 0807 Diltiazem HCl 30 MG Q6 06/29 1310 AC 06/30 PO 0015 Famotidine 20 MG ONCE ONE 06/29 1830 DC 06/29 PO 06/29 1831 2220 Fluticasone 2 PUF BID 06/29 1134 AC 06/29 Propionate INH 2221 Guaifenesin 10 ML Q6P PRN 06/28 1000 AC PO Guaifenesin 600 MG Q12 06/27 1429 AC 06/29 PO 2220 Hydrochlorothiazide 12.5 MG DAILY 06/27 1000 AC 06/29 PO 0804 Ipratropium [place] 2.5 ML TID PRN 06/29 1136 AC INH Ipratropium [place] 2.5 ML TID 06/28 2200 DC 06/28 INH 2354 Melatonin 5 MG AT BEDTIME 06/29 2200 AC 06/29 PO 2220 Metoprolol Tartrate 50 MG BID 06/28 1000 AC 06/29 PO 2221 Omeprazole 20 MG DAILY AC 06/27 0948 AC 06/30 PO 0507 Thyroid 45 MG DAILY AC 06/28 0700 AC 06/30 PO 0507 Tiotropium [place] 1 PUF DAILY 06/29 1139 AC 06/29 INH 1432 Trimethoprim/ 1 TAB BID 06/29 1137 DC 06/29 Sulfamethoxazole PO 07/06 1000 2220 Vital Signs & I&O Last 24 Hrs of Vitals and I&O: Vital Signs Date Time Temp Pulse Resp B/P B/P Pulse O2 O2 Flow FiO2 Mean Ox Delivery Rate 06/30 0633 97.7 77 20 146/100 93 Room Air 06/30 0015 100 128/78 06/30 0000 Room Air 06/29 2224 98.6 75 20 120/70 92 06/29 2221 120 122/70 06/29 1813 120 140/72 06/29 1600 Room Air 06/29 1432 120 140/70 06/29 1400 98.0 66 20 146/80 94 Room Air Intake & Output 06/30 1600 06/30 0800 06/30 0000 Intake Total 240 120 Output Total Balance 240 120 Intake, Oral 240 120 Impression/Plan Impression/Plan Impression/Plan: General Appearance Alert, Oriented X3, Cooperative, No Acute Distress Skin No Rashes Skin Temp/Moisture Exam: Warm/Dry Sepsis Skin Exam (color): Normal for Ethnicity HEENT Atraumatic, PERRLA, EOMI, Mucous Membr. moist/pink Neck Supple, No JVD, No thryomegaly Cardiovascular Normal S1, Normal S2, irregularly irregular rhythm Lungs Sig wheezing Abdomen Normal Bowel Sounds, Soft, No Tenderness Neurological Normal Speech, Strength at 5/5 X4 Ext, Normal Tone, Sensation Intact, Cranial Nerves 3-12 NL Extremities No Clubbing, No Cyanosis, No Edema Vascular Pulses Symmetrical IMRESSION * Bronchitis with pna better * Diarrhea new onset * New onset Pafib now in sinus but had sig pauses * HTN, Hyperlipedemia and hypothryoid * HIgh Kris vasc of 3 needs anticoag * Mild hyperthyroid as she is on armour thyroid REC Stop abx Cardio to see Start spiriva one puff daily Start flovent 110 2 puff bid Start budesonide neb rx 0.5mg bid Doyle thyroid eq to 45 mg daily pharmacy to adjust the dose Will follow
--- NOTE | 2017-06-30 10:09 | PN- Att Addend ---
Attending Addendum Attending Brief Note Her breathing is better her cough is looser. Overnight several times had some short periods of pauses on the monitor patient had no symptoms Vital signs are stable and no fever. O2 saturation is acceptable better air entry will check with cardiology to see if any adjustment of the medications is needed for hard or if she needs any more testing or treatments. If cardiology clears her pulmonary clear her and we'll start disposition plans. Intake & Output 06/30 1600 06/30 0400 06/29 1600 06/29 0400 06/28 1600 06/28 0400 Intake Total 240 120 032 498 6018 300 Output Total Balance 240 120 304 300 9634 300 Intake, IV 260 20 Intake, Oral 240 120 118 485 7736 280 Current Medications Sig/Christopher Start time Last Medication Dose Route Stop Time Status Admin Albuterol Sulfate 3 ML TID 06/28 2200 DC 06/28 INH 2353 Albuterol Sulfate 2 PUF Q4 PRN 06/27 0445 DC INH Apixaban 5 MG BID 06/27 1302 AC 06/30 PO 0850 Azithromycin 500 MG DAILY 06/27 1000 DC 06/29 Dextrose/Water 250 ML IV 0820 Benzonatate 100 MG TID PRN 06/28 0119 DC 06/29 PO 1433 Budesonide/ 2 PUF BID 06/28 1424 AC 06/30 Formoterol Fumarate INH 0850 Ceftriaxone Sodium 1,000 MG DAILY 06/27 1000 DC 06/29 IV 0807 Diltiazem HCl 30 MG Q6 06/29 1310 DC 06/30 PO 0015 Famotidine 20 MG ONCE ONE 06/29 1830 DC 06/29 PO 06/29 1831 2220 Fluticasone 2 PUF BID 06/29 1134 AC 06/30 Propionate INH 0850 Guaifenesin 10 ML Q6P PRN 06/28 1000 AC PO Guaifenesin 600 MG Q12 06/27 1429 AC 06/30 PO 0850 Hydrochlorothiazide 12.5 MG DAILY 06/27 1000 AC 06/30 PO 0850 Ipratropium [place] 2.5 ML TID PRN 06/29 1136 AC INH Ipratropium [place] 2.5 ML TID 06/28 2200 DC 06/28 INH 2354 Melatonin 5 MG AT BEDTIME 06/29 2200 AC 06/29 PO 2220 Metoprolol Tartrate 50 MG BID 06/28 1000 AC 06/30 PO 0850 Omeprazole 20 MG DAILY AC 06/27 0948 AC 06/30 PO 0507 Thyroid 45 MG DAILY AC 06/28 0700 AC 06/30 PO 0507 Tiotropium [place] 1 PUF DAILY 06/29 1139 AC 06/29 INH 1432 Trimethoprim/ 1 TAB BID 06/29 1137 DC 06/29 Sulfamethoxazole PO 07/06 1000 2220 Laboratory Tests 06/30/17 0455: Anion Gap 12, Estimated GFR > 60, BUN/Creatinine Ratio 31.7 H, Phosphorus 4.1, Magnesium 1.8 06/29/17 0220: Troponin I 0.02 06/28/17 0620: Anion Gap 7, Estimated GFR > 60, BUN/Creatinine Ratio 48.0 H, CBC w Diff NO MAN DIFF REQ, RBC 4.59, MCV 89.1, MCH 29.3, MCHC 32.9 L, RDW 14.6 H, MPV 11.6 H, Gran % 81.8 H, Lymphocytes % 8.4 L, Monocytes % 9.4 H, Eosinophils % 0.3, Basophils % 0.1, Absolute Granulocytes 8.2 H, Absolute Lymphocytes 0.9 L, Absolute Monocytes 1.0 H, Absolute Eosinophils 0, Absolute Basophils 0 Microbiology 06/29 154 STOOL: Clostridium difficile Toxin A & B - RECD 06/28 1857 UPPER RESP: Surveillance Culture - COMP 06/28 1544 NASOPHARYN: Influenza Virus A & B Rapid Smear - COMP 06/27 2110 LOWER RESP: Respiratory Culture - CAN Cancelled: SPECIMEN NOT RECEIVED IN LABORATORY 06/27 2110 LOWER RESP: Gram Stain - CAN Cancelled: SPECIMEN NOT RECEIVED IN LABORATORY Microbiology 06/29 154 STOOL: Clostridium difficile Toxin A & B - RECD 06/28 1857 UPPER RESP: Surveillance Culture - COMP 06/28 1545 NASOPHARYN: Influenza Virus A & B Rapid Smear - COMP 06/27 2110 LOWER RESP: Respiratory Culture - CAN Cancelled: SPECIMEN NOT RECEIVED IN LABORATORY 06/27 2110 LOWER RESP: Gram Stain - CAN Cancelled: SPECIMEN NOT RECEIVED IN LABORATORY Vital Signs Date Time Temp Pulse Resp B/P B/P Pulse O2 O2 Flow FiO2 Mean Ox Delivery Rate 06/30 0850 112 126/88 06/30 0633 97.7 77 20 146/100 93 Room Air 06/30 0015 100 128/78 06/30 0000 Room Air 06/29 2224 98.6 75 20 120/70 92 06/29 2221 120 122/70 06/29 1813 120 140/72 06/29 1600 Room Air 06/29 1432 120 140/70 06/29 1400 98.0 66 20 146/80 94 Room Air
--- NOTE | 2017-06-30 10:59 | PN- Cardiology ---
Subjective Subjective: Patient feels well. She denies chest pain shortness of breath or dizziness. She is anxious to be discharged. She feels that she will do better at home. She still has mild wheezing Review of Systems: Eyes no blurred or double vision Ears no deafness or ringing Nose and throat no recurrent sinusitis Lungs per history of present illness Heart per history of present illness Abdomen no nausea vomiting Musculoskeletal occasional muscle and joint pains Psych no anxiety or depression Neuro without recurrent headache or seizures Endocrine no heat or cold intolerance Objective Vital Signs and I&Os Vital Signs Date Time Temp Pulse Resp B/P B/P Pulse O2 O2 Flow FiO2 Mean Ox Delivery Rate 06/30 0850 112 126/88 06/30 0633 97.7 77 20 146/100 93 Room Air 06/30 0015 100 128/78 06/30 0000 Room Air 06/29 2224 98.6 75 20 120/70 92 06/29 2221 120 122/70 06/29 1813 120 140/72 06/29 1600 Room Air 06/29 1432 120 140/70 06/29 1400 98.0 66 20 146/80 94 Room Air Intake & Output 06/30 1600 06/30 0800 06/30 0000 06/29 1600 06/29 0800 06/29 0000 Intake Total 240 120 500 120 120 Output Total Balance 240 120 500 120 120 Intake, Oral 240 120 500 120 120 Physical Exam: Patient is a well-developed well-nourished female appearing in no acute distress HEENT is unremarkable Neck is supple there is no JVD Lungs inspiratory rhonchi and wheezes bilaterally Heart regular rhythm S1 and S2 are normal no murmurs gallops or rubs Abdomen bowel sounds positive Extremities without edema Current Medications: Current Medications Sig/Christopher Start time Last Medication Dose Route Stop Time Status Admin Albuterol Sulfate 3 ML TID 06/28 2200 DC 06/28 INH 2353 Albuterol Sulfate 2 PUF Q4 PRN 06/27 0445 DC INH Apixaban 5 MG BID 06/27 1302 AC 06/30 PO 0850 Azithromycin 500 MG DAILY 06/27 1000 DC 06/29 Dextrose/Water 250 ML IV 0820 Benzonatate 100 MG TID PRN 06/28 0119 DC 06/29 PO 1433 Budesonide/ 2 PUF BID 06/28 1424 AC 06/30 Formoterol Fumarate INH 0850 Ceftriaxone Sodium 1,000 MG DAILY 06/27 1000 DC 06/29 IV 0807 Diltiazem HCl 30 MG Q6 06/29 1310 DC 06/30 PO 0015 Famotidine 20 MG ONCE ONE 06/30 1100 AC PO 06/30 1101 Famotidine 20 MG ONCE ONE 06/29 1830 DC 06/29 PO 06/29 1831 2220 Fluticasone 2 PUF BID 06/29 1134 AC 06/30 Propionate INH 0850 Guaifenesin 10 ML Q6P PRN 06/28 1000 AC PO Guaifenesin 600 MG Q12 06/27 1429 AC 06/30 PO 0850 Hydrochlorothiazide 12.5 MG DAILY 06/27 1000 AC 06/30 PO 0850 Ipratropium [place] 2.5 ML TID PRN 06/29 1136 AC INH Ipratropium [place] 2.5 ML TID 06/28 2200 DC 06/28 INH 2354 Melatonin 5 MG AT BEDTIME 06/29 2200 AC 06/29 PO 2220 Metoprolol Tartrate 50 MG BID 06/28 1000 AC 06/30 PO 0850 Omeprazole 20 MG DAILY AC 06/30 1050 DC PO Omeprazole 20 MG DAILY AC 06/27 0948 AC 06/30 PO 0507 Thyroid 45 MG DAILY AC 06/28 0700 AC 06/30 PO 0507 Tiotropium [place] 1 PUF DAILY 06/29 1139 AC 06/30 INH 1027 Trimethoprim/ 1 TAB BID 06/29 1137 DC 06/29 Sulfamethoxazole PO 07/06 1000 2220 Results Last 48 Hrs of Labs/Mics: Laboratory Tests 06/30/17 0455: Anion Gap 12, Estimated GFR > 60, BUN/Creatinine Ratio 31.7 H, Phosphorus 4.1, Magnesium 1.8 06/29/17 0220: Troponin I 0.02 Microbiology 06/28 1858 UPPER RESP: Surveillance Culture - COMP 06/28 1545 NASOPHARYN: Influenza Virus A & B Rapid Smear - COMP Telemetry personally reviewed atrial fibrillation with pauses up to 6 seconds overnight Recent Imaging Studies: Echocardiogram CONCLUSIONS Normal global left ventricular size, wall thickness, systolic function with no obvious regional wall motion abnormalities. Left ventricular ejection fraction is estimated at 55 %. Abnormal relaxation filling pattern of the left ventricle (stage 1 diastolic dysfunction). Normal right ventricular size and function. No pericardial effusion. Assessment/Plan Assessment/Plan 1. Respiratory tract infection secondary to bronchitis 2. New-onset atrial fibrillation with spontaneous conversion back to sinus rhythm and then recurrent atrial fibrillation now with up to 6 second pauses noted on telemetry 3. History of hypertension 4. History of hyperlipidemia 5. History of hypothyroidism Recommendations 1. Will discontinue diltiazem. Zithromax and Bactrim have also been discontinued. 2. Continue metoprolol 3. Continue to monitor telemetry 4. Continue Eliquis for stroke prevention 5. I am concerned that the patient may indeed have tachybradycardia sick sinus syndrome. If her heart rate is not well controlled on the metoprolol she may indeed require pacemaker. Will discuss this with Dr. Bay as to whether a infectious disease consult is even required for clearance prior to implantation diagnosis of bronchitis. Continue telemetry? Yes
[2017-06-30 14:04] VITALS: BP 156/88
[2017-06-30 22:06] VITALS: BP 130/80
[2017-07-01 06:34] VITALS: BP 182/104
--- NOTE | 2017-07-01 07:16 | PN- Housestaff ---
Subjective Follow-up For: New-onset atrial fibrillation CAP ?Sick sinus sydrome with 6 sec pauses Complaints: no complaints Tele-Events Since Last Visit: NSR with HR 46-69. No overnight events. Subjective: Patient was seen and examined at bedside. Reports doing well. She is eager to go home. She expresses a strong desire to have the pacemaker today. If this is not feasible, she would like to go home. Review of Systems Constitutional: Reports: no symptoms. Objective Last 24 Hrs of Vital Signs/I&O Vital Signs Date Time Temp Pulse Resp B/P B/P Pulse O2 O2 Flow FiO2 Mean Ox Delivery Rate 07/01 0915 82 142/84 07/01 0634 98.6 76 18 182/104 93 Room Air 07/01 0000 Room Air Room Air 06/30 2206 98.3 87 18 130/80 90 Room Air 06/30 2127 86 130/80 06/30 2024 93 Room Air 06/30 1404 97.1 82 18 156/88 91 Intake & Output 07/01 1600 07/01 0800 07/01 0000 Intake Total 100 Output Total Balance 100 Intake, Oral 100 Physical Exam General Appearance: Alert, Oriented X3, Cooperative, No Acute Distress Skin: No Rashes, No Breakdown Skin Temp/Moisture Exam: Warm/Dry Sepsis Skin Exam (color): Normal for Ethnicity HEENT: Atraumatic Cardiovascular: Normal S1, Normal S2, No Murmurs Lungs: Clear to Auscultation, Normal Air Movement Abdomen: Soft, No Tenderness Neurological: Normal Speech Extremities: No Edema Assessment/Plan Assessment: Ms. Huffman is a 66-year-old female with a past medical history significant for hypothyroidism, HTN, HLD, OA, GERD who presented with complains of a five-day history of URI-like symptoms. In the ED she was found to have A. fib. She has been intermittently in and out of sinus rhythm. Currently in NSR. Problem list: 1. New-onset atrial fibrillation 2. Bronchitis with Pneumonia - resolved 3. ? Sick sinus syndrome Plan: * Contrinue Apixaban 5mg BID, Metoprolol 50 mg BID * Patient stable from a pulmonary standpoint for pacemaker implantation * Await cardiology input if pacemaker procedure can be done today or at a later date. * ECHO showed stage 1 diastolic dysfunction without regional wall motion abnormalities, EF 55% * Hold Cardizem 30 mg q6h for now due to significant pauses. * Continue Synthyroid 45 mg * TRC PRN * Place Atropine and pacer pads at bedside * Continue telemetry monitoring * Diet: Heart Healthy Diet (NPO for now) * DVT Prophylaxis: Eliquis * Code: Full Code Problem List: 1. New onset a-fib Pain Ratin Pain Location: none Pain Goal: Remain pain free Pain Plan: none Tomorrow's Labs & Rationales: BEP
[2017-07-01 09:03] LABS: ABSOLUTE BASOPHIL COUNT 0 /CUMM (0.0-0.2); ABSOLUTE EOSINOPHIL COUNT 0.1 /CUMM (0.0-0.7); ABSOLUTE GRANULOCYTE CT 5.8 /CUMM (1.4-6.5); ABSOLUTE LYMPH COUNT 1.4 /CUMM (1.2-3.4); ABSOLUTE MONOCYTE COUNT 0.7 /CUMM (0.10-0.60); BASOPHIL % 0.2 % (0.0-2.0); EOSINOPHIL % 1.2 % (0-5); GRANULOCYTE % 71.7 % (42.2-75.2); HEMATOCRIT 42.1 % (37-47); MEAN CORPUSCULAR HGB 29.2 PG (27.0-31.0); MEAN CORPUSCULAR HGB CONC 33.5 G/DL (33.0-37.0); MEAN CORPUSCULAR VOLUME 87.4 FL (81.0-99.0); MEAN PLATELET VOLUME 10.3 FL (7.4-10.4); PLATELET COUNT 258 /CUMM (130-400); RBC DISTRIBUTION WIDTH 14.4 % (11.5-14.5); RED BLOOD CELL CT 4.82 /CUMM (4.20-5.40); WHITE BLOOD CELL COUNT 8.1 /CUMM (4.8-10.8)
[2017-07-01 09:19] LABS: PT 15.1 SEC (9.4-12.5); PTT 30 SEC (25-37)
--- NOTE | 2017-07-01 09:50 | PN- Att Addend ---
Attending Addendum Attending Brief Note Patient very anxious, once to go home. No episodes of arrhythmias overnight. Last dose of eloquence was last evening. Vital signs are stable, no fever, lungs are clear. Kem Bya MD to evaluate the patient to see if she is stable enough to tolerate the pacemaker procedure also cardiology to decide if he wants to do it or if the patient needs it. Will follow all recommendations Intake & Output 07/01 1600 07/01 0400 06/30 1600 06/30 0400 06/29 1600 06/29 0400 Intake Total 100 240 120 620 120 Output Total Balance 100 240 120 620 120 Intake, Oral 100 240 120 620 120 Current Medications Sig/Christopher Start time Last Medication Dose Route Stop Time Status Admin Apixaban 5 MG BID 06/27 1302 DC 06/30 PO 2127 Budesonide/ 2 PUF BID 06/28 1424 AC 06/30 Formoterol Fumarate INH 2127 Famotidine 20 MG ONCE ONE 06/30 1100 DC 06/30 PO 06/30 1101 1121 Fluticasone 2 PUF BID 06/29 1134 AC 06/30 Propionate INH 2129 Guaifenesin 10 ML Q6P PRN 06/28 1000 AC PO Guaifenesin 600 MG Q12 06/27 1429 AC 07/01 PO 0915 Hydrochlorothiazide 12.5 MG DAILY 06/27 1000 AC 07/01 PO 0914 Ipratropium [place] 2.5 ML TID PRN 06/29 1136 AC INH Melatonin 5 MG AT BEDTIME 06/29 2200 AC 06/30 PO 2127 Metoprolol Tartrate 50 MG BID 06/28 1000 AC 07/01 PO 0915 Omeprazole 20 MG DAILY AC 06/30 1050 DC PO Omeprazole 20 MG DAILY AC 06/27 0948 AC 07/01 PO 0605 Thyroid 45 MG DAILY AC 06/28 0700 AC 07/01 PO 0605 Tiotropium [place] 1 PUF DAILY 06/29 1139 AC 06/30 INH 1027 Laboratory Tests 07/01/17 0808: Anion Gap 13, Estimated GFR > 60, BUN/Creatinine Ratio 36.7 H, PT 15.1 H, INR 1.44 H, APTT 30, CBC w Diff NO MAN DIFF REQ, RBC 4.82, MCV 87.4, MCH 29.2, MCHC 33.5, RDW 14.4, MPV 10.3, Gran % 71.7, Lymphocytes % 17.8 L, Monocytes % 9.1, Eosinophils % 1.2, Basophils % 0.2, Absolute Granulocytes 5.8, Absolute Lymphocytes 1.4, Absolute Monocytes 0.7 H, Absolute Eosinophils 0.1, Absolute Basophils 0 06/30/17 0455: Anion Gap 12, Estimated GFR > 60, BUN/Creatinine Ratio 31.7 H, Phosphorus 4.1, Magnesium 1.8 06/29/17 0220: Troponin I 0.02 Microbiology 06/29 1548 STOOL: Clostridium difficile Toxin A & B - COMP 06/28 1858 UPPER RESP: Surveillance Culture - COMP 06/28 1545 NASOPHARYN: Influenza Virus A & B Rapid Smear - COMP Vital Signs Date Time Temp Pulse Resp B/P B/P Pulse O2 O2 Flow FiO2 Mean Ox Delivery Rate 07/01 0915 82 142/84 07/01 0634 98.6 76 18 182/104 93 Room Air 07/01 0000 Room Air Room Air 06/30 2206 98.3 87 18 130/80 90 Room Air 06/30 2127 86 130/80 06/30 2024 93 Room Air 06/30 1404 97.1 82 18 156/88 91 06/30 1106 94 Room Air Room Air
--- NOTE | 2017-07-01 10:17 | PN- Pulmonary ---
Subjective HPI/Critical Care Issues: Doing much better Pending pacer No sig wheezing or cough remains afebrile Laboratory Tests 07/01 06/30 0808 0455 Chemistry Sodium (137 - 145 mmol/L) 139 138 Potassium (3.5 - 5.1 mmol/L) 4.0 3.9 Chloride (98 - 107 mmol/L) 98 98 Carbon Dioxide (22 - 30 mmol/L) 28 28 Anion Gap (5 - 16) 13 12 BUN (7 - 17 mg/dL) 22 H 19 H Creatinine (0.5 - 1.0 mg/dL) 0.6 0.6 Estimated GFR (>60 ml/min) > 60 > 60 BUN/Creatinine Ratio (7 - 25 %) 36.7 H 31.7 H Phosphorus (2.5 - 4.5 mg/dL) 4.1 Magnesium (1.6 - 2.3 mg/dL) 1.8 Coagulation PT (9.4 - 12.5 SEC) 15.1 H INR (0.90 - 1.19) 1.44 H APTT (25 - 37 SEC) 30 Hematology CBC w Diff NO MAN DIFF REQ WBC (4.8 - 10.8 /CUMM) 8.1 RBC (4.20 - 5.40 /CUMM) 4.82 Hgb (12.0 - 16.0 G/DL) 14.1 Hct (37 - 47 %) 42.1 MCV (81.0 - 99.0 FL) 87.4 MCH (27.0 - 31.0 PG) 29.2 MCHC (33.0 - 37.0 G/DL) 33.5 RDW (11.5 - 14.5 %) 14.4 Plt Count (130 - 400 /CUMM) 258 MPV (7.4 - 10.4 FL) 10.3 Gran % (42.2 - 75.2 %) 71.7 Lymphocytes % (20.5 - 51.1 %) 17.8 L Monocytes % (1.7 - 9.3 %) 9.1 Eosinophils % (0 - 5 %) 1.2 Basophils % (0.0 - 2.0 %) 0.2 Absolute Granulocytes (1.4 - 6.5 /CUMM) 5.8 Absolute Lymphocytes (1.2 - 3.4 /CUMM) 1.4 Absolute Monocytes (0.10 - 0.60 /CUMM) 0.7 H Absolute Eosinophils (0.0 - 0.7 /CUMM) 0.1 Absolute Basophils (0.0 - 0.2 /CUMM) 0 Microbiology Date/Time Procedure - Status Source Growth 06/29 1548 Clostridium difficile Toxin A & B - COMP STOOL 06/28 1858 Surveillance Culture - COMP UPPER RESP 06/28 1545 Influenza Virus A & B Rapid Smear - COMP NASOPHARYN Objective Current Medications: Current Medications Sig/Christopher Start time Last Medication Dose Route Stop Time Status Admin Apixaban 5 MG BID 06/27 1302 DC 06/30 PO 2127 Budesonide/ 2 PUF BID 06/28 1424 AC 06/30 Formoterol Fumarate INH 8 Famotidine 20 MG ONCE ONE 06/30 1100 DC 06/30 PO 06/30 1101 1121 Fluticasone 2 PUF BID 06/29 1134 AC 06/30 Propionate INH 9 Guaifenesin 10 ML Q6P PRN 06/28 1000 AC PO Guaifenesin 600 MG Q12 06/27 1429 AC 07/01 PO 0915 Hydrochlorothiazide 12.5 MG DAILY 06/27 1000 AC 07/01 PO 0914 Ipratropium [place] 2.5 ML TID PRN 06/29 1136 AC INH Melatonin 5 MG AT BEDTIME 06/29 2200 AC 06/30 PO 2127 Metoprolol Tartrate 50 MG BID 06/28 1000 AC 07/01 PO 0915 Omeprazole 20 MG DAILY AC 06/30 1050 DC PO Omeprazole 20 MG DAILY AC 06/27 0948 AC 07/01 PO 0605 Thyroid 45 MG DAILY AC 06/28 0700 AC 07/01 PO 0605 Tiotropium [place] 1 PUF DAILY 06/29 1139 AC 06/30 INH 1027 Vital Signs & I&O Last 24 Hrs of Vitals and I&O: Vital Signs Date Time Temp Pulse Resp B/P B/P Pulse O2 O2 Flow FiO2 Mean Ox Delivery Rate 07/01 0915 82 142/84 07/01 0634 98.6 76 18 182/104 93 Room Air 07/01 0000 Room Air Room Air 06/30 2205 98.3 87 18 130/80 90 Room Air 06/30 2127 86 130/80 06/30 202 93 Room Air 06/30 1404 97.1 82 18 156/88 91 06/30 1106 94 Room Air Room Air Intake & Output 07/01 1600 07/01 0800 07/01 0000 Intake Total 100 Output Total Balance 100 Intake, Oral 100 Impression/Plan Impression/Plan Impression/Plan: General Appearance Alert, Oriented X3, Cooperative, No Acute Distress Skin No Rashes Skin Temp/Moisture Exam: Warm/Dry Sepsis Skin Exam (color): Normal for Ethnicity HEENT Atraumatic, PERRLA, EOMI, Mucous Membr. moist/pink Neck Supple, No JVD, No thryomegaly Cardiovascular Normal S1, Normal S2, irregularly irregular rhythm Lungs Clear this morn Abdomen Normal Bowel Sounds, Soft, No Tenderness Neurological Normal Speech, Strength at 5/5 X4 Ext, Normal Tone, Sensation Intact, Cranial Nerves 3-12 NL Extremities No Clubbing, No Cyanosis, No Edema Vascular Pulses Symmetrical IMRESSION * Bronchitis with pna better * Diarrhea new onset * New onset Pafib now in sinus but had sig pauses * HTN, Hyperlipedemia and hypothryoid * HIgh Kris vasc of 3 needs anticoag * Mild hyperthyroid as she is on armour thyroid REC' All cultures are neg Ok for pacmaker COnt current mes Will follow
[2017-07-01 14:51] VITALS: BP 136/70
--- NOTE | 2017-07-01 14:52 | PN- Cardiology ---
Subjective Subjective: Feels well. No dizziness/chest pain/palpitations. Objective Vital Signs and I&Os Vital Signs Date Time Temp Pulse Resp B/P B/P Pulse O2 O2 Flow FiO2 Mean Ox Delivery Rate 07/01 1451 97.6 83 18 136/70 92 Room Air 07/01 1135 95 Room Air 07/01 0915 82 142/84 07/01 0634 98.6 76 18 182/104 93 Room Air 07/01 0000 Room Air Room Air 06/30 220 98.3 87 18 130/80 90 Room Air 06/30 2127 86 130/80 06/30 202 93 Room Air Intake & Output 07/01 1600 07/01 0800 07/01 0000 06/30 1600 06/30 0800 06/30 0000 Intake Total 450 100 240 120 Output Total Balance 450 100 240 120 Intake, Oral 450 100 240 120 Patient 245 lb Weight Physical Exam: General: no apparent distress. Alert. Eyes: No obvious scleral icterus. HEENT: No jugular venous distention or abnormal jugular venous pulsations. Cardiovascular: Normal intensity S1/S2. Regular Respiratory: no rales/ronchi Abdomen: Soft, nontender with no guarding or rebound tenderness. Musculoskeletal: No clubbing or cyanosis noted, no edema Skin: No obvious rashes or ulcerations. Neurologic: No gross focal deficits noted. Lymph: No gross lymphadenopathy. Current Medications: Current Medications Sig/Christopher Start time Last Medication Dose Route Stop Time Status Admin Apixaban 5 MG BID 06/27 1302 DC 06/30 PO 7 Budesonide/ 2 PUF BID 06/28 1424 AC 07/01 Formoterol Fumarate INH 1033 Fluticasone 2 PUF BID 06/29 1134 AC 07/01 Propionate INH 1033 Guaifenesin 10 ML Q6P PRN 06/28 1000 AC PO Guaifenesin 600 MG Q12 06/27 1429 AC 07/01 PO 0915 Hydrochlorothiazide 12.5 MG DAILY 06/27 1000 AC 07/01 PO 0914 Ipratropium [place] 2.5 ML TID PRN 06/29 1136 DC INH Melatonin 5 MG AT BEDTIME 06/29 2200 AC 06/30 PO 2127 Metoprolol Tartrate 50 MG BID 06/28 1000 AC 07/01 PO 0915 Omeprazole 20 MG DAILY AC 06/27 0948 AC 07/01 PO 0605 Thyroid 45 MG DAILY AC 06/28 0700 AC 07/01 PO 0605 Tiotropium [place] 1 PUF DAILY 06/29 1139 AC 07/01 INH 1032 Results Last 48 Hrs of Labs/Mics: Laboratory Tests 07/01/17 0808: Anion Gap 13, Estimated GFR > 60, BUN/Creatinine Ratio 36.7 H, PT 15.1 H, INR 1.44 H, APTT 30, CBC w Diff NO MAN DIFF REQ, RBC 4.82, MCV 87.4, MCH 29.2, MCHC 33.5, RDW 14.4, MPV 10.3, Gran % 71.7, Lymphocytes % 17.8 L, Monocytes % 9.1, Eosinophils % 1.2, Basophils % 0.2, Absolute Granulocytes 5.8, Absolute Lymphocytes 1.4, Absolute Monocytes 0.7 H, Absolute Eosinophils 0.1, Absolute Basophils 0 06/30/17 0455: Anion Gap 12, Estimated GFR > 60, BUN/Creatinine Ratio 31.7 H, Phosphorus 4.1, Magnesium 1.8 Microbiology 06/29 1548 STOOL: Clostridium difficile Toxin A & B - COMP Recent Imaging Studies: Telemetry tracings show SR with PAF without sustained tachycardia and no recurrent prolonged pauses Assessment/Plan Assessment/Plan 1. Respiratory tract infection secondary to bronchitis 2. New-onset atrial fibrillation with spontaneous conversion back to sinus rhythm and then recurrent atrial fibrillation with some pauses 3. History of hypertension 4. History of hyperlipidemia 5. History of hypothyroidism Respiratory status improved. Still with PAF on telemetry but no recurrent significant bradycardia or tachycardia on current B-pinky dose. I had extensive discussion with the patient/ today and as PPM is not urgent they would like to monitor heart rate after discharge before proceeding with PPM which is reasonable. Can continue current B-pinky and Eliquis. Consider outpatient Holter/event monitor and possible LINQ. Return to hospital via 911 with any new/recurrent symptoms. Follow-up in our office within 1 week of discharge. Case discussed with the patient/family/pulmonary and medical team today. Simone Tiwari MD [facility] Continue telemetry? No
[2017-07-01] MEDS ORDERED: ELIQUIS5 M1 PO (15:18)
[2017-07-01] MEDS ORDERED: ARMOUR THYROID30 M1 PO (15:18)
[2017-07-01] MEDS ORDERED: METOPROLOL TART50 M1 PO (15:18)
[2017-07-01] MEDS ORDERED: FLOVENT HFA12 G1 INH (15:18)
[2017-07-01] MEDS ORDERED: SPIRIVA18 MCG INH (15:18)
[2017-07-01] MEDS ORDERED: GUAIFENESIN ER600 MG PO (15:18)
[2017-07-01] MEDS ORDERED: HYDROCHLOROTH12.5 M3 PO (15:26)
--- NOTE | 2017-07-01 15:26 | Patient Discharge Instructions ---
Discharge Instructions General Discharge Information You were seen/treated for: Difficulty in the breathing and abnormal rhythm of the heart. We treated you with antibiotics and drugs controlled the heart rhythm. Special Instructions: Please follow-up with your chair and couch maker within a week of discharge. You are started on blood thinner, watch for bleeding and follow your chair and couch maker for further recommendation. Please follow-up with your PCP within a week of discharge Diet Recommended Diet: Heart Healthy Acute Coronary Syndrome Inclusion Criteria At DC or during hospital stay patient has or had the following: ACS DIAGNOSIS No Discharge Core Measures Meds if any: Prescribed or Continued at Discharge Meds if any: NOT Prescribed or Continued at Discharge Congestive Heart Failure Inclusion Criteria At DC or during hospital stay patient has or had the following: CHF DIAGNOSIS No Discharge Core Measures Meds if any: Prescribed or Continued at Discharge Meds if any: NOT Prescribed or Continued at Discharge Cerebrovascular accident Inclusion Criteria At DC or during hospital stay patient has or had the following: CVA/TIA Diagnosis No Discharge Core Measures Meds if any: Prescribed or Continued at Discharge Meds if any: NOT Prescribed or Continued at Discharge Venous thromboembolism Inclusion Criteria VTE Diagnosis No VTE Type NONE VTE Confirmed by (Test) NONE Discharge Core Measures - Per Current guidelines, there needs to be overlap - treatment for the first 5 days of Warfarin therapy. - If discharged on Warfarin prior to 5 days of - overlap therapy, the patient will need to be - assessed for post discharge needs including - *Post discharge parental anticoagulation - *Warfarin and/or parental anticoagulation education - *Follow up date to check INR post discharge At least 5 days overlap therapy as Inpatient No Meds if any: Prescribed or Continued at Discharge Note: Overlap Therapy is Warfarin and Anticoagulant Meds if any: NOT Prescribed or Continued at Discharge
== END 2017-07-01 17:05 | DRG 308 ==
LOC: ERH 20:22 → ERHI 22:26 → 1NO 22:26 → ENRESERV 23:43 → 1NO 06-27 00:50
PROVIDERS: Dermatology; Internal Medicine; Internal Medicine Adolescent Medicine; Physician Assistant
DX: I48.91 Unspecified atrial fibrillation (principal); J18.9 Pneumonia, unspecified organism; Z68.41 Body mass index [BMI] 40.0-44.9, adult; E78.5 Hyperlipidemia, unspecified; G43.909 Migraine, unspecified, not intractable, without status migrainosus; I10 Essential (primary) hypertension; J40 Bronchitis, not specified as acute or chronic; E03.9 Hypothyroidism, unspecified; I45.10 Unspecified right bundle-branch block; K21.9 Gastro-esophageal reflux disease without esophagitis; E66.9 Obesity, unspecified; J45.909 Unspecified asthma, uncomplicated; Z87.891 Personal history of nicotine dependence
CPT/HCPCS: 1NP; ERO; 36415; 36592; 71046; 82436; 87040; 87070; 87804; 87804-59; 93005; 93010; 93306; 96365; 96374; 96375; 99291; J0456; J0461; J0696; J1644; J3490; J7060